=== PATIENT | female | born 1965 | race Caucasian/White ===

== ENCOUNTER 2017-05-31 20:10 | Inpatient (IN) | payer MEDICARE ==
[~2017-05-31] VITALS: Ht 154.9 cm; Wt 93.5 kg
[2017-05-31 20:06] VITALS: BP 184/96; PULSE 84; RESP 17; TEMP 96.6; O2SAT 94
[~2017-05-31 20:10] MED LIST: GABA300C3 PO; LISI-360 PO
[2017-05-31] MEDS ORDERED: HYDROmorphone HCL PF 1 MG/ML VIAL IV PRN (22:15)
[2017-05-31] MEDS: ONDANSETRON HCL 4 MG/2 ML VIAL IV PUSH PRN (22:16)
[2017-05-31] MEDS: HYDROmorphone HCL PF 1 MG/ML VIAL IV PRN (22:17)
[2017-05-31] MEDS ORDERED: NALOXONE HCL 0.4 MG/ML AMP IV PRN (22:30)
[2017-05-31] MEDS ORDERED: SODIUM CHLORIDE 0.9% FLUSH 10 ML FLUSH IV FLUSH PRN (22:30)
[2017-05-31] MEDS ORDERED: ZOLPIDEM TARTRATE 5 MG TAB PO PRN (22:30)
[2017-05-31] MEDS: SODIUM CHLOR 0.9% 1000 ML INJ 1,000 ML IV SCH (23:00)
[2017-06-01] VITALS (8 sets, daily range): BP systolic 140–190; BP diastolic 80–99; PULSE 74–98; RESP 16–20; TEMP 96–98.2; O2SAT 92–95
[2017-06-01] MEDS ORDERED: LACTATED RINGER'S 1000 ML IV PRN (00:45)
[2017-06-01] MEDS ORDERED: CHLORHEXIDINE GLUCONATE 2 % 1 PACK (2 CLOTHS) TOPICAL PRN (00:45)
[2017-06-01] MEDS ORDERED: INSULIN HUMAN REGULAR 1,000 UNITS/10 ML VIAL SQ PRN (00:45)
[2017-06-01] MEDS ORDERED: POVIDONE IODINE 5% (ANTISEPSIS KIT) 4 APPLICATIONS EACH NARE PRN (00:45)
[2017-06-01] MEDS ORDERED: SODIUM CHLORID 0.9% 500 ML IV PRN (00:45)
[2017-06-01] MEDS: ENALAPRILAT 1.25 MG/ML VIAL IV PUSH PRN (01:13)
[2017-06-01] MEDS: ONDANSETRON HCL 4 MG/2 ML VIAL IV PUSH PRN ×3 (02:26→20:01)
[2017-06-01] MEDS: HYDROmorphone HCL PF 1 MG/ML VIAL IV PRN ×5 (02:28→20:01)
[2017-06-01] MEDS: SODIUM CHLOR 0.9% 1000 ML INJ 1,000 ML IV SCH ×3 (08:20→20:01)
[2017-06-01] MEDS: SODIUM CHLORIDE 0.9% FLUSH 10 ML FLUSH IV FLUSH SCH ×2 (09:28→20:01)
--- NOTE | 2017-06-01 10:12 | HHI.HP ---
[facility] Service [facility] Primary Care Physician Donaldo Swain, DO Admission Diagnosis Diagnoses: Chief Complaint: Left leg pain (Laura Mcguire) Travel History International Travel<30 Days: No Contact w/Intl Traveler <30 Da: No Traveled to Known Affected Are: No (Laura Mcguire) History of Present Illness This a pleasant 51-year-old white female with significant past medical history of chronic pain, neuropathy, hypothyroidism, Guillain [place], ovarian cancer. Patient presented to [facility] on 05/30/2017 with complaint of left knee and leg pain that has been ongoing for 3 months. According to the patient, back in February she saw her primary care physician and had x-rays that didn't reveal any significant findings. She had a cortisone injection per Dr. Olmos. Over the next couple months,the pain has become so severe that her leg has started buckling and she has had a couple of falls. She finally went to [facility] yesterday where she had an MRI and a CT of the left leg. Imaging findings showed the possibility of osteomyelitis, there is a focal area of intramedullary density, gas to the proximal tibial diaphysis as well as a complete nondisplaced pathological fracture. There is also an abscess adjacent to the bone. Patient was transferred to this facility and a consultation has been put in place for Dr. Cowan who has evaluated patient and plans surgery tomorrow. Patient denies any recent fever, no chills. Indicates that sometimes the left knee gets very hot to the touch. Patient is admitted for further evaluation and treatment. (Laura Mcguire) Review of Systems Constitutional: DENIES: Diaphoretic episodes, Fatigue, Fever, Weight gain, Weight loss, Chills, Dizziness, Change in appetite, Night Sweats Endocrine: DENIES: Abnorml menstrual pattern, Heat/cold intolerance, Polydipsia , Polyuria, Polyphagia Eyes: DENIES: Blurred vision, Diplopia, Eye inflammation, Eye pain, Vision loss , Photosensitivity, Double Vision Ears, nose, mouth, throat: DENIES: Tinnitus, Hearing loss, Vertigo, Nasal discharge, Oral lesions, Throat pain, Hoarseness, Ear Pain, Running Nose, Epistaxis, Sinus Pain, Toothache, Odynophagia Respiratory: DENIES: Apneas, Cough, Snoring, Wheezing, Hemoptysis, Sputum production, Shortness of breath Cardiovascular: DENIES: Chest pain, Palpitations, Syncope, Dyspnea on Exertion , PND, Lower Extremity Edema, Orthopnea, Claudication Gastrointestinal: DENIES: Abdominal pain, Black stools, Bloody stools, Constipation, Diarrhea, Nausea, Vomiting, Difficulty Swallowing, Anorexia Genitourinary: DENIES: Abnormal vaginal bleeding, Dysmenorrhea, Dyspareunia, Sexual dysfunction, Urinary frequency, Urinary incontinence, Urgency, Hematuria , Dysuria, Nocturia, Vaginal discharge Musculoskeletal: COMPLAINS OF: Joint pain (left knee), Back pain, DENIES: Muscle aches, Stiffness, Joint Swelling, Neck pain Integumentary: DENIES: Abnormal pigmentation, Pruritus, Rash, Nail changes, Breast masses, Breast skin changes, Nipple discharge Hematologic/lymphatic: DENIES: Bruising, Lymphadenopathy Immunologic/allergic: DENIES: Eczema, Urticaria Neurologic: COMPLAINS OF: Abnormal gait, DENIES: Headache, Localized weakness, Paresthesias, Seizures, Speech Problems, Tremor, Poor Balance Psychiatric: COMPLAINS OF: Anxiety, Depression, DENIES: Confusion, Mood changes , Hallucinations, Agitation, Suicidal Ideation, Homicidal Ideation, Delusions Other Neuropathy (Laura Mcguire) Past Family Social History Past Medical History Hypothyroid Chronic pain syndrome Neuropathy Guillain barre, had PPE Ovarian cancer Diet controlled diabetes Depression Anxiety Right foot infection after surgery, also doubly osteomyelitis, she's not too sure Past Surgical History C-spine surgery 2 Right foot surgery 2 Ovarian cancer is status post LSO with hysterectomy Bilateral knee arthroscopy Reported Medications Reported Meds & Active Scripts Active Reported Lisinopril 10 mg (Lisinopril) 10 Mg Tab 2 Tab PO DAILY Gabapentin 300 Mg Cap 1,200 Mg PO TID (Laura Mcguire) Allergies: Coded Allergies: acetaminophen (Unverified Allergy, Severe, 05/23/17) NAUSEA VOMITING bupropion (Unverified Allergy, Severe, 05/23/17) ITCHING propoxyphene (Unverified Allergy, Severe, 05/23/17) NAUSEA VOMITING codeine (Unverified Adverse Reaction, Severe, NAUSEA, 05/23/17) ITCHING morphine (Unverified Adverse Reaction, Severe, AGITATION, 05/23/17) MIGRAINE Active Ordered Medications Inpatient Medications Chlorhexidine Gluconate (Chlorhexidine 2% Cloth) 3 pack [employer]ANCE [employer] PRN TOPICAL SEE LABEL COMMENTS; Start 06/01/17 at 00:45; Stop 06/04/17 at 00:44 Enalaprilat (Vasotec Inj) 1.25 mg Q6H PRN IV PUSH SBP > 170 MMHG Last administered on 06/01/17 01:13; Start 06/01/17 at 01:15 Hydromorphone HCl (Dilaudid Pf Inj) 1 mg Q4H PRN IV PAIN 6-10 Last administered on 06/01/17 06:42; Start 05/31/17 at 22:15 Insulin Human Regular (NovoLIN R INJ) See Protocol Table ... [employer] INS[employer]ANCE [employer]ENT PRN SQ SEE PROTOCOL TABLE; Start 06/01/17 at 00:45; Stop 06/04/17 at 00:44 Lactated Ringer's 1,000 ml @ 30 mls/hr Q24H PRN IV SEE LABEL COMMENTS; Start at 00:45; Stop 06/04/17 at 00:44 Naloxone HCl (Narcan Inj) 0.4 mg UNSCH PRN IV SEE LABEL COMMENTS; Start at 22:30 Ondansetron HCl (Zofran Inj) 4 mg Q4H PRN IV PUSH N/V Last administered on 06/01 06:41; Start 05/31/17 at 22:15 Povidone Iodine (Betadine 5% Antisepsis Kit) 1 applic [employer] INS[employer] PRN EACH NARE SEE LABEL COMMENTS; Start 06/01/17 at 00:45; Stop 06/04/17 at 00:44 Sodium Chloride 500 ml @ 30 mls/hr [id number] PRN IV SEE LABEL COMMENTS; Start at 00:45; Stop 06/04/17 at 00:44 Sodium Chloride (NS Flush) 2 ml BID IV FLUSH Last administered on 06/01/17 09: 28; Start 06/01/17 at 09:00 Zolpidem Tartrate (Ambien) 5 mg HS PRN PO INSOMNIA; Start 05/31/17 at 22:30 Family History Mother is alive and well, has history of borderline diabetes Father is alive and well, has history of diabetes Social History Patient lives with significant other, has 2 grown children. Smokes 1 pack a day , drinks 2 glasses of wine a day, occasional marijuana use. (Laura Mcguire) Physical Exam Vital Signs Vital Signs Date Time Temp Pulse Resp B/P (MAP) Pulse Ox O2 Delivery O2 Flow Rate FiO2 06/01/17 07:45 98.2 97 20 148/84 (105) 95 06/01/17 04:59 96.9 74 18 174/86 (115) 95 06/01/17 02:15 170/80 (110) 06/01/17 00:15 96.0 78 19 190/99 (129) 92 05/31/17 20:06 96.6 84 17 184/96 (125) 94 Physical Exam GENERAL: This is a well-nourished, well-developed patient, in no apparent distress. SKIN: No rashes, ecchymoses or lesions. Cool and dry. HEAD: Atraumatic. Normocephalic. No temporal or scalp tenderness. EYES: Pupils equal round and reactive. Extraocular motions intact. No scleral icterus. No injection or drainage. ENT: Nose without bleeding, purulent drainage or septal hematoma. Throat without erythema, tonsillar hypertrophy or exudate. Uvula midline. Airway patent. NECK: Trachea midline. No JVD or lymphadenopathy. Supple, nontender, no meningeal signs. CARDIOVASCULAR: Regular rate and rhythm without murmurs, gallops, or rubs. RESPIRATORY: Clear to auscultation. Breath sounds equal bilaterally. No wheezes , rales, or rhonchi. GASTROINTESTINAL: Abdomen soft, non-tender, nondistended. No hepato-splenomegaly , or palpable masses. No guarding. MUSCULOSKELETAL: Mild swelling noted to left knee, tender to palpation. No other joint abnormality. Bilateral pedal pulses 2+ bilaterally NEUROLOGICAL: Awake, alert oriented 3. No focal deficits. (Laura Mcguire) Caprini VTE Risk Assessment Caprini VTE Risk Assessment: Mod/High Risk (score >= 2) Caprini Risk Assessment Model Point Value = 1 Point Value = 2 Point Value = 3 Point Value = 5 Age 41-60 Minor surgery BMI > 25 kg/m2 Swollen legs Varicose veins or History of unexplained or recurrent spontaneous Oral contraceptives or hormone replacement Sepsis (< 1 month) Serious lung disease, including pneumonia (< 1 month) Abnormal pulmonary function Acute myocardial infarction Congestive heart failure (< 1 month) History of inflammatory bowel disease Medical patient at bed rest Age 61-74 Arthroscopic surgery Major open surgery (> 45 min) Laparoscopic surgery (> 45 min) Malignancy Confined to bed (> 72 hours) Immobilizing plaster cast Central venous access Age >= 75 History of VTE Family history of VTE Factor V Leiden Prothrombin [id number] Lupus anticoagulant Anticardiolipin antibodies Elevated serum homocysteine Heparin-induced thrombocytopenia Other congenital or acquired thrombophilia Stroke (< 1 month) Elective arthroplasty Hip, pelvis, or leg fracture Acute spinal cord injury (< 1 month) Prophylaxis Regimen Total Risk Factor Score Risk Level Prophylaxis Regimen 0-1 Low Early ambulation 2 Moderate Order ONE of the following: *Sequential Compression Device (SCD) *Heparin 5000 units SQ BID 3-4 Higher Order ONE of the following medications: *Heparin 5000 units SQ TID *Enoxaparin/Lovenox 40 mg SQ daily (WT < 150 kg, CrCl > 30 mL/min) *Enoxaparin/Lovenox 30 mg SQ daily (WT < 150 kg, CrCl > 10-29 mL/min) *Enoxaparin/Lovenox 30 mg SQ BID (WT < 150 kg, CrCl > 30 mL/min) AND/OR *Sequential Compression Device (SCD) 5 or more Highest Order ONE of the following medications: *Heparin 5000 units SQ TID (Preferred with Epidurals) *Enoxaparin/Lovenox 40 mg SQ daily (WT < 150 kg, CrCl > 30 mL/min) *Enoxaparin/Lovenox 30 mg SQ daily (WT < 150 kg, CrCl > 10-29 mL/min) *Enoxaparin/Lovenox 30 mg SQ BID (WT < 150 kg, CrCl > 30 mL/min) AND *Sequential Compression Device (SCD) (Laura Mcguire) Assessment and Plan Problem List: (1) Nondisplaced fracture of proximal left tibia ICD Codes: S82.102A - Unspecified fracture of upper end of left tibia, initial encounter for closed fracture Status: Acute (2) poss abscess left tibia with underlying osteomyelitis Status: Acute (3) Chronic pain ICD Codes: G89.29 - Other chronic pain Status: Chronic (4) Diet-controlled diabetes mellitus ICD Codes: E11.9 - Type 2 diabetes mellitus without complications Status: Chronic (5) Hypothyroid ICD Codes: E03.9 - Hypothyroidism, unspecified Status: Chronic (6) Anxiety and depression ICD Codes: F41.8 - Other specified anxiety disorders Status: Chronic (7) HTN (hypertension) ICD Codes: I10 - Essential (primary) hypertension Status: Chronic Assessment and Plan Admit to Dr. Mtz 51-year-old white female admitted with ongoing left pain, was found with with proximal tibial nondisplaced pathological fracture as well as possible osteomyelitis and abscess. -Orthopedic surgery has been consulted, patient has been evaluated and will be going for surgery tomorrow -Appropriate pain management has been ordered -At this time, no antibiotics will be initiated. There is no fever, no leukocytosis. Hypertension, patient was on Lisinopril but no longer takes. -Continue Vasotec as needed for elevated blood pressure Chronic pain -Medications have been resumed Diet controlled diabetes, stable -ADA diet Anxiety and depression -Home medications have been resumed Home medications reviewed, initiated as indicated SCDs for DVT prophylaxis Plan of care has been discussed with the patient, attending and registered nurse. Further management of the patient will be dependent on the hospital course This patient was seen by myself and Dr. Mtz, this H&P is written on his behalf (Laura Mcguire) Assessment and Plan pt is seen & examined d/w PT d/w Dr Guzman yesterday , Pt was transferred to [facility] per his recommendation to be evaluated & treated by Dr citlali Cowan's input awaited will f/u (Jerad Mtz MD) Physician Certification 2 Midnight Certification Type: Admission for Inpatient Services Order for Inpatient Services The services are ordered in accordance with Medicare regulations or non- Medicare payer requirements, as applicable. In the case of services not specified as inpatient-only, they are appropriately provided as inpatient services in accordance with the 2-midnight benchmark. Estimated LOS (days): 2 2 days is the estimated time the patient will need to remain in the hospital, assuming treatment plan goals are met and no additional complications. Post-Hospital Plan: Not yet determined (Laura Mcguire) Problem Qualifiers (1) Chronic pain: Qualified Codes: G89.4 - Chronic pain syndrome (2) Hypothyroid: Qualified Codes: E03.9 - Hypothyroidism, unspecified (3) HTN (hypertension): Qualified Codes: I10 - Essential (primary) hypertension Laura Mcguire Jun 01, 2017 10:12 Jerad Mtz MD Jun 01, 2017 12:11
[2017-06-01] MEDS ORDERED: DIVA250ER PO (10:29)
[2017-06-01] MEDS ORDERED: DEPA125T PO (10:29)
[2017-06-01] MEDS ORDERED: LYRI150C PO (10:30)
[2017-06-01] MEDS ORDERED: FLUO-1 PO (10:31)
[2017-06-01] MEDS ORDERED: ALLO100T PO (10:32)
[2017-06-01] MEDS ORDERED: TIZA2CAP3 PO (10:33)
[2017-06-01] MEDS ORDERED: AMIT75TA2 PO (10:36)
--- NOTE | 2017-06-01 13:32 | MB ---
cc: ESTELLA GLOVER DATE OF CONSULTATION: 06/01/2017 REASON FOR CONSULTATION Left proximal tibia fracture with possible osteomyelitis. HISTORY OF PRESENT ILLNESS Frida is a 51-year-old female who had a relatively recent history of Guillain-Belspring syndrome. Since that illness she has had multiple falls. She states that she has weakness of her legs and poor balance. She generally walks with a walker. She has been having pain for close to 3 months. She has bruises on her anterior knee from multiple falls. She initially was seen by Dr. Han Mcdaniels in the office. She had x-rays and MRI. She has had continued pain. She presented to [facility] where x-rays and MRI were done. The patient had increasing pain. She was unable to stand or ambulate. She has severe pain with weightbearing. Her pain is improved with rest. MRI was performed which was suspicious for possible osteomyelitis and possible infection. She is currently awake and alert in the orthopedic floor. Her only complaint is her left leg. Pain is worse with weightbearing. PAST MEDICAL HISTORY ALLERGIES WELLBUTRIN, MORPHINE, CODEINE AND DARVOCET. ILLNESSES 1. Hypertension. 2. Neuropathy. 3. Hypothyroidism. 4. History of Guillain-Belspring syndrome. 5. Borderline diabetes. PAST SURGICAL HISTORY 1. Cervical spine surgery. 2. Foot surgery. 3. Hysterectomy. 4. Bilateral knee arthroscopy. MEDICATIONS Please see EMR for complete list of inpatient medications, this was reviewed. SOCIAL HISTORY The patient is . She smokes a pack a day. She drinks approximately one drink a day. States that she is on disability. FAMILY HISTORY Noncontributory. REVIEW OF SYSTEMS The patient denies headache, visual changes, neck pain, chest pain, shortness of breath, abdominal pain, nausea, vomiting, recent weight loss or numbness or tingling of the extremities. She does have a history of poor balance and weakness secondary to Guillain-Belspring syndrome. She complains of left leg and knee pain. Pain is worse with movement. She denies any recent fevers or chills. She has had some mild swelling around the left knee. PHYSICAL EXAMINATION GENERAL: The patient is a pleasant 51-year-old female who is awake and alert. She is alert and oriented x3. She appears well-developed, well-nourished. She is moderately overweight. VITAL SIGNS: Temperature 98.2, pulse 77, respirations 20, blood pressure 148/84, O2 sat 95% on room air. HEAD: The patient is normocephalic. Pupils are equal. NECK: Soft, nontender. Trachea is midline. ABDOMEN: Soft, nontender, nondistended. EXTREMITIES: Examination of bilateral upper extremities reveals no pain with shoulder, elbow or wrist motion. She has intact sensation in all fingers. She has good cap refill in all fingers. Skin is intact to both hands. [employer] strength is +5 bilaterally. Examination of right leg reveals no pain with hip, knee or ankle motion. Skin is intact. Dorsalis pedis pulses palpable. Sensation intact to right foot. Examination of left leg reveals no pain around her hip or ankle. She has minimal pain with gentle knee motion. She has minimal swelling around the knee. There is no redness, warmth, erythema around her knee. She is exquisitely tender to palpation directly over the anterior tibial shaft just below the tibial tubercle. There is no fluctuance noted. Dorsalis pedis pulses palpable. Sensation is intact. Skin is intact in the left leg. IMAGING STUDIES MRI and CT scan were reviewed from [facility]. CT scan reveals a small amount of fracture callus along a proximal tibia shaft fracture. There is a nondisplaced fracture line through the proximal tibial metaphysis. Fracture appears to be incomplete. MRI of left knee was reviewed. The patient has edema of the proximal tibia. Appears to be nondisplaced fracture line. There does appear to be a small fluid collection along the posterior medial tibia. IMPRESSION 1. Nondisplaced fracture of the proximal left tibial metaphysis. 2. Small fluid collection along the posterior medial tibia. PLAN Treatment options were discussed with the patient. At this point the initial MRI reading was suspicious for osteomyelitis and possible small abscess along the tibia. The patient does not have any signs or symptoms of infection. She has had no recent illnesses or infections. She has had multiple falls. At this point I feel that she likely has a nondisplaced fracture of the proximal tibia without any concomitant infection. At this point I will obtain labs including C-reactive protein and sedimentation rate to help evaluate for possible infection. If the patient does have infection she will need surgical intervention. The patient will need irrigation and debridement of the tibia and abscess. If the patient does not have an infection she may likely be able to be treated nonoperatively. If her pain and symptoms do not improve with conservative treatment which would include use of a walker and/or a wheelchair with non-weightbearing on the left leg, then she may need surgical intervention for stabilization of her fracture. I will continue to follow her progress. All of her questions were answered. A mid-level provider in my office, nurse practitioner or PA, may see this patient on a follow-up basis and continue to implement the objective of this plan including: Starting or adjusting medications, injections of muscle, tendon, bursa or joints, cast application, orthotic or brace application, physical therapy, further radiographic studies including x-ray, MRI, CT, ultrasounds or bone scan, vascular studies, neurologic studies, or other specialist consultations, and proceeding with surgical management as appropriate. MD MAGO Tran/LOUIE /12:06 PM /12:59 PM
[2017-06-01] MEDS ORDERED: PILL SPLITTER OTHER PRN (16:30)
[2017-06-01] MEDS: ALLOPURINOL 100 MG TAB PO SCH (17:03)
[2017-06-01] MEDS: FLUoxetine HCL 10 MG CAP PO SCH (17:03)
[2017-06-01] MEDS: AMITRIPTYLINE HCL 75 MG TAB PO SCH (17:03)
[2017-06-01] MEDS: PREGABALIN 75 MG CAP PO SCH (17:32)
[2017-06-01] MEDS: DIVALPROEX SODIUM SPRINKLES 125 MG CAP PO SCH (17:33)
[2017-06-02] VITALS (7 sets, daily range): BP systolic 140–190; BP diastolic 76–98; PULSE 70–101; RESP 16–17; TEMP 97.1–98.8; O2SAT 94–98
[2017-06-02] MEDS: HYDROmorphone HCL PF 1 MG/ML VIAL IV PRN ×5 (00:27→21:42)
[2017-06-02] MEDS ORDERED: HYDR-3366 PO (06:56)
--- NOTE | 2017-06-02 07:04 | PD.ORT.PN ---
Subjective Subjective Remarks Frida is awake. Pain relatively well controlled. She does have significant pain with weightbearing. Minimal pain at rest. Objective Vitals Vital Signs Date Time Temp Pulse Resp B/P (MAP) Pulse Ox O2 Delivery O2 Flow Rate FiO2 06/02/17 04:00 98.8 70 16 159/79 (105) 96 06/02/17 00:10 97.1 92 17 140/76 (97) 94 06/01/17 20:05 98.2 88 16 152/86 (108) 94 06/01/17 15:48 97.6 98 18 150/92 (111) 93 Automatic Cuff 06/01/17 11:44 97.4 85 18 140/84 (102) 93 06/01/17 10:06 95 06/01/17 07:45 98.2 97 20 148/84 (105) 95 I/O 06/01/17 06/01/17 06/01/17 06/02/17 06/02/17 06/02/17 07:00 15:00 23:00 07:00 15:00 23:00 Intake Total 0 ml 1200 ml 600 ml 0 ml Balance 0 ml 1200 ml 600 ml 0 ml Intake Oral 0 ml 1200 ml 600 ml 0 ml # Voids 2 2 3 2 # Bowel Movements 0 0 Objective Remarks Patient is awake and alert. She appears comfortable. Examination of left leg reveals minimal swelling. No erythema or drainage. Tender to palpation along the proximal tibia. Assessment & Plan Assessment and Plan Patient has a nondisplaced left proximal tibia fracture. Lab work yesterday for sedimentation rate and C-reactive protein are essentially normal. Clinically she does not have any evidence of infection. Her pain is likely from the nondisplaced fracture of the proximal tibia from multiple falls. She needs to remain strictly nonweightbearing left leg with use of walker Okay for discharge home today if safe with physical therapy Follow-up with Ortho in approximately 2 weeks Rj He MD Jun 02, 2017 07:04
[2017-06-02] MEDS ORDERED: WALKER/ADULT/FO1 MIS (07:06)
[2017-06-02] MEDS: PREGABALIN 75 MG CAP PO SCH ×3 (08:54→17:13)
[2017-06-02] MEDS: DIVALPROEX SODIUM SPRINKLES 125 MG CAP PO SCH ×3 (08:54→17:13)
[2017-06-02] MEDS: FLUoxetine HCL 10 MG CAP PO SCH (08:54)
[2017-06-02] MEDS: ALLOPURINOL 100 MG TAB PO SCH (08:54)
[2017-06-02] MEDS: AMITRIPTYLINE HCL 75 MG TAB PO SCH (08:54)
[2017-06-02] MEDS: SODIUM CHLORIDE 0.9% FLUSH 10 ML FLUSH IV FLUSH SCH ×2 (08:54→19:52)
--- NOTE | 2017-06-02 10:09 | HHI.FF ---
Face to Face Verification Diagnosis: (1) Nondisplaced fracture of proximal left tibia Physical Therapy Order: Evaluate and Treat Home Health Nursing Order: Medical education Nursing assessment with vital signs I have seen patient Frida Harrison on 06/02/17. My clinical findings support the need for the requested home health care services because: Ltd mobility - disease progression Deconditioned w/ increased weakness Limited ability to care for self High risk of falls I certify that my clinical findings support that this patient is homebound because: Unsteady gait/balance Unsafe to leave home unassisted Laura Mcguire Jun 02, 2017 10:09
--- NOTE | 2017-06-02 10:10 | HHI.PR ---
Subjective Remarks left leg painful, pain better controlled no cp no sob will not be having surgery per ortho recommendations pt. wants to go to rehab Objective Objective Results - Vital Signs Date Time Temp Pulse Resp B/P (MAP) Pulse Ox O2 Delivery O2 Flow Rate FiO2 06/02/17 07:20 97.7 85 17 190/98 (128) 95 160/92 (114) 06/02/17 04:00 98.8 70 16 159/79 (105) 96 06/02/17 00:10 97.1 92 17 140/76 (97) 94 06/01/17 20:05 98.2 88 16 152/86 (108) 94 06/01/17 15:48 97.6 98 18 150/92 (111) 93 Automatic Cuff 06/01/17 11:44 97.4 85 18 140/84 (102) 93 I/O 06/01/17 06/01/17 06/01/17 06/02/17 06/02/17 06/02/17 07:00 15:00 23:00 07:00 15:00 23:00 Intake Total 0 ml 1200 ml 600 ml 0 ml Balance 0 ml 1200 ml 600 ml 0 ml Intake Oral 0 ml 1200 ml 600 ml 0 ml # Voids 2 2 3 2 # Bowel Movements 0 0 Other Results Laboratory Tests Test 06/01/17 12:20 06/01/17 12:38 C-Reactive Protein 2.00 Erythrocyte Sedimentation Rate 16 ROS General: No: Fatigue, Weakness HEENT: No: Sore Throat, Dysphagia Cardiac: No: Chest Pain, Edema, Palpitations Pulmonary: No: Cough, SOB, Wheezing GI: No: Abdominal Pain, BM, Diarrhea, N/V /GRAIN THRESHER: No: Dysuria, Urgency Neuro/MS: Other (left leg pain ) Psych: No: Anxiety, Depression Skin: No: Itching, Rash Physical Exam Physical Exam GENERAL: This is a well-nourished, well-developed patient, in no apparent distress. SKIN: No rashes, ecchymoses or lesions. Cool and dry. HEAD: Atraumatic. Normocephalic. No temporal or scalp tenderness. EYES: Pupils equal round and reactive. Extraocular motions intact. No scleral icterus. No injection or drainage. ENT: Nose without bleeding, purulent drainage or septal hematoma. Throat without erythema, tonsillar hypertrophy or exudate. Uvula midline. Airway patent. NECK: Trachea midline. No JVD or lymphadenopathy. Supple, nontender, no meningeal signs. CARDIOVASCULAR: Regular rate and rhythm without murmurs, gallops, or rubs. RESPIRATORY: Clear to auscultation. Breath sounds equal bilaterally. No wheezes , rales, or rhonchi. GASTROINTESTINAL: Abdomen soft, non-tender, nondistended. No hepato-splenomegaly , or palpable masses. No guarding. MUSCULOSKELETAL: Mild swelling noted to left knee, tender to palpation. No other joint abnormality. Bilateral pedal pulses 2+ bilaterally NEUROLOGICAL: Awake, alert oriented 3. No focal deficits. Urinary Catheter: No Vascular Central Line Catheter: No A/P Diagnosis: (1) Nondisplaced fracture of proximal left tibia ICD Codes: S82.102A - Unspecified fracture of upper end of left tibia, initial encounter for closed fracture Status: Acute (2) poss abscess left tibia with underlying osteomyelitis Status: Acute (3) Chronic pain ICD Codes: G89.29 - Other chronic pain Status: Chronic (4) Diet-controlled diabetes mellitus ICD Codes: E11.9 - Type 2 diabetes mellitus without complications Status: Chronic (5) Hypothyroid ICD Codes: E03.9 - Hypothyroidism, unspecified Status: Chronic (6) Anxiety and depression ICD Codes: F41.8 - Other specified anxiety disorders Status: Chronic (7) HTN (hypertension) ICD Codes: I10 - Essential (primary) hypertension Status: Chronic Assessment and Plan 51-year-old white female admitted with ongoing left pain, was found with with proximal tibial nondisplaced pathological fracture as well as possible osteomyelitis and abscess. -appreciate ortho input, no surgery recommended at this time. .No clinical sx of infection. Fracture likely due to mult. falls. Recommends strictly nonweightbearing left leg with use of walker, PT. -sed rate okay, no evidence of infection -ortho has cleared for dc Hypertension, patient was on Lisinopril but no longer takes. -Continue Vasotec as needed for elevated blood pressure -BP remains elevated, will add Lisinopril 2.5 mg po daily. Chronic pain -continue home meds Diet controlled diabetes, stable -ADA diet Anxiety and depression -continue home meds SCDs for DVT prophylaxis CM consult for DC planning, SNF placement Poss dc today or tomorrow if arrangements can be made D/W RN D/W Dr. Mtz D/W pt This patient was seen by myself and Dr. Mtz, this note is written on his behalf Problem Qualifiers (1) Chronic pain: Qualified Codes: G89.4 - Chronic pain syndrome (2) Hypothyroid: Qualified Codes: E03.9 - Hypothyroidism, unspecified (3) HTN (hypertension): Qualified Codes: I10 - Essential (primary) hypertension Laura Mcguire Jun 02, 2017 10:10
[2017-06-02] MEDS ORDERED: LYRI150C PO (10:20)
--- NOTE | 2017-06-02 10:20 | HHI.DCPOC ---
Discharge Care Plan Diagnosis: (1) Nondisplaced fracture of proximal left tibia Your Health Problems Are: Difficulty with ADL Goals to Promote Your Health * To prevent worsening of your condition and complications * To maintain your health at the optimal level Directions to Meet Your Goals Take your medications as prescribed Follow your dietary instruction Follow activity as directed Keep your appointments as scheduled Take your immunizations and boosters as scheduled If your symptoms worsen call your PCP, if no PCP go to Urgent Care Center or Emergency Room Smoking is Dangerous to Your Health. Avoid second hand smoke Call the 24-hour hour crisis hotline for domestic abuse at Laura Mcguire. [facility] Jun 02, 2017 10:20
[2017-06-02] MEDS ORDERED: LISI-519 PO (10:21)
[2017-06-02] MEDS ORDERED: LYRI75CA PO (10:23)
[2017-06-02] MEDS: LISINOPRIL 5 MG TAB PO SCH (11:03)
[2017-06-02] MEDS: SODIUM CHLOR 0.9% 1000 ML INJ 1,000 ML IV SCH (14:20)
[2017-06-02] MEDS: ENALAPRILAT 1.25 MG/ML VIAL IV PUSH PRN (19:51)
[2017-06-03] MEDS: SODIUM CHLOR 0.9% 1000 ML INJ 1,000 ML IV SCH ×2 (00:06→10:20)
[2017-06-03 00:11] VITALS: BP 142/84; PULSE 87; RESP 16; TEMP 97.3; O2SAT 93
[2017-06-03] MEDS: HYDROmorphone HCL PF 1 MG/ML VIAL IV PRN (03:45)
[2017-06-03 04:00] VITALS: BP 152/92; PULSE 86; RESP 20; TEMP 97.1; O2SAT 96
[2017-06-03 07:14] LABS: POTASSIUM 4.8 MEQ/L (3.5-5.1)
[2017-06-03] MEDS: SODIUM CHLORIDE 0.9% FLUSH 10 ML FLUSH IV FLUSH SCH (09:00)
[2017-06-03 09:23] VITALS: BP 179/90; PULSE 92; RESP 18; TEMP 95.6; O2SAT 94
[2017-06-03] MEDS: ALLOPURINOL 100 MG TAB PO SCH (09:25)
[2017-06-03] MEDS: FLUoxetine HCL 10 MG CAP PO SCH (09:25)
[2017-06-03] MEDS: AMITRIPTYLINE HCL 75 MG TAB PO SCH (09:25)
[2017-06-03] MEDS: PREGABALIN 75 MG CAP PO SCH ×2 (09:25→15:12)
[2017-06-03] MEDS: DIVALPROEX SODIUM SPRINKLES 125 MG CAP PO SCH ×2 (09:26→15:12)
[2017-06-03] MEDS: LISINOPRIL 5 MG TAB PO SCH (09:26)
[2017-06-03] MEDS ORDERED: ACETAMINOPHEN/HYDROcodone 325 MG/7.5 MG TAB PO ONE (10:15)
--- NOTE | 2017-06-03 11:53 | HHI.PR ---
Subjective History of Present Illness I am ok leg pain is ok /pain meds are helping hurts to stand no N/v no fever or chills no cp or sob offers no other c/o Vitals/Results Vital Signs Vital Signs Date Time Temp Pulse Resp B/P (MAP) Pulse Ox O2 Delivery O2 Flow Rate FiO2 06/03/17 09:23 95.6 92 18 179/90 (119) 94 06/03/17 04:00 97.1 86 20 152/92 (112) 96 06/03/17 00:11 97.3 87 16 142/84 (103) 93 06/02/17 21:15 98 152/88 (109) 06/02/17 19:15 98.2 101 17 182/86 (118) 98 06/02/17 16:30 97.4 92 17 165/95 (118) 95 CBC/BMP: 06/03/17 0542 Lab Results Laboratory Tests Test 06/03/17 05:42 Blood Urea Nitrogen 11 MG/DL Creatinine 0.82 MG/DL Random Glucose 93 MG/DL Calcium Level 9.2 MG/DL Sodium Level 138 MEQ/L Potassium Level 4.8 MEQ/L Chloride Level 98 MEQ/L Carbon Dioxide Level 33.0 MEQ/L Anion Gap 7 MEQ/L Estimat Glomerular Filtration Rate 74 ML/MIN Physical Exam General General Appearance: No Acute Distress, Comfortable, Obese Eyes Eye Exam: Pupils Equal, Sclera White Ears & Nose Ears & Nose Exam: Nasal Mucosa [place] Throat Throat Exam: Oral Mucosa [place] & Moist Neck Neck Exam: Neck Supple, Trachea Midline Pulmonary Resp Exam: Clear Bilaterally, Breath Sounds Equal Cardiology CV Exam: Regular, Normal Sinus Rhythm Gastrointestinal/Abdomen GI Exam: Soft, Non-Tender Musculoskeletal MS Remarks +ve tenderness over prox left leg just below knee joint, mild swelling Neurologic Neuro Exam: Alert, Awake, Oriented, Speech Clear, Moving All Extremities Psychiatric Psych Exam: Appropriate Responses Assessment/Plan Assessment/Plan A/P Diagnosis: (1) Nondisplaced fracture of proximal left tibia ICD Codes: S82.102A - Unspecified fracture of upper end of left tibia, initial encounter for closed fracture Status: Acute (2) poss abscess left tibia with underlying osteomyelitis Status: Acute (3) Chronic pain ICD Codes: G89.29 - Other chronic pain Status: Chronic (4) Diet-controlled diabetes mellitus ICD Codes: E11.9 - Type 2 diabetes mellitus without complications Status: Chronic (5) Hypothyroid ICD Codes: E03.9 - Hypothyroidism, unspecified Status: Chronic (6) Anxiety and depression ICD Codes: F41.8 - Other specified anxiety disorders Status: Chronic (7) HTN (hypertension) ICD Codes: I10 - Essential (primary) hypertension Status: Chronic Assessment and Plan 51-year-old white female admitted with ongoing left pain, was found with with proximal tibial nondisplaced pathological fracture as well as possible osteomyelitis and abscess. -appreciate ortho input, no surgery recommended at this time. .No clinical sx of infection. Fracture likely due to mult. falls. Recommends strictly nonweightbearing left leg with use of walker, PT. -sed rate okay, no evidence of infection -ortho has cleared for dc Hypertension, patient was on Lisinopril but no longer takes. -Continue Vasotec as needed for elevated blood pressure -BP remains elevated, will add Lisinopril 2.5 mg po daily. Chronic pain -continue home meds Diet controlled diabetes, stable -ADA diet Anxiety and depression -continue home meds SCDs for DVT prophylaxis CM consult for DC planning, SNF placement Poss dc today or tomorrow if arrangements can be made D/W Jerad Mane MD Jun 03, 2017 11:53
[2017-06-03 11:56] VITALS: BP 119/74; PULSE 118; RESP 18; TEMP 98.2; O2SAT 96
--- NOTE | 2017-06-04 00:40 | HHI.DS ---
Discharge Summary Admission Date May 31, 2017 at 20:10 Discharge Date: Jun 03, 2017 Admitting Diagnosis (1) Nondisplaced fracture of proximal left tibia ICD Codes: S82.102A - Unspecified fracture of upper end of left tibia, initial encounter for closed fracture Status: Acute (2) poss abscess left tibia with underlying osteomyelitis Status: Acute (3) Chronic pain ICD Codes: G89.29 - Other chronic pain Status: Chronic (4) Diet-controlled diabetes mellitus ICD Codes: E11.9 - Type 2 diabetes mellitus without complications Status: Chronic (5) Hypothyroid ICD Codes: E03.9 - Hypothyroidism, unspecified Status: Chronic (6) Anxiety and depression ICD Codes: F41.8 - Other specified anxiety disorders Status: Chronic (7) HTN (hypertension) ICD Codes: I10 - Essential (primary) hypertension Status: Chronic CBC/BMP: 06/03/17 0542 Significant Findings Laboratory Tests Test 06/01/17 12:20 06/01/17 12:38 06/03/17 05:42 C-Reactive Protein 2.00 MG/DL (0.00-0.30) Carbon Dioxide Level 33.0 MEQ/L (21.0-32.0) Estimat Glomerular Filtration Rate 74 ML/MIN (>89) Hospital Course This a pleasant 51-year-old white female with significant past medical history of chronic pain, neuropathy, hypothyroidism, Guillain [place], ovarian cancer. Patient presented to [facility] on 05/30/2017 with complaint of left knee and leg pain that has been ongoing for 3 months. According to the patient, back in February she saw her primary care physician and had x-rays that didn't reveal any significant findings. She had a cortisone injection per Dr. Olmos. Over the next couple months,the pain has become so severe that her leg has started buckling and she has had a couple of falls. She finally went to [facility] yesterday where she had an MRI and a CT of the left leg. Imaging findings showed the possibility of osteomyelitis, there is a focal area of intramedullary density, gas to the proximal tibial diaphysis as well as a complete nondisplaced pathological fracture. There is also an abscess adjacent to the bone. Patient was transferred to this facility and a consultation has been put in place for Dr. Cowan who has evaluated patient and plans surgery tomorrow. Patient denied any recent fever, no chills. Indicated that sometimes the left knee gets very hot to the touch. Patient was admitted for further evaluation and treatment. Diagnosis: (1) Nondisplaced fracture of proximal left tibia (2) poss abscess left tibia with underlying osteomyelitis (3) Chronic pain (4) Diet-controlled diabetes mellitus (5) Hypothyroid (6) Anxiety and depression (7) HTN (hypertension) Hospital Course: 51-year-old white female admitted with ongoing left pain, was found with with proximal tibial nondisplaced pathological fracture as well as possible osteomyelitis and abscess. -appreciated ortho input, no surgery recommended at this time. .No clinical sx of infection. Fracture likely due to mult. falls. Recommended strictly nonweightbearing left leg with use of walker, PT. -sed rate okay, no evidence of infection -ortho cleared for dc Hypertension, patient was on Lisinopril but no longer was taking -put Vasotec as needed for elevated blood pressure -BP remained elevated, started on Lisinopril 2.5 mg po daily. BP improved Chronic pain -continued home meds Diet controlled diabetes, stable -ADA diet Anxiety and depression -continued home meds SCDs for DVT prophylaxis CM consult for DC planning, SNF placement Pt. stable for dc Discharged to SNF in stable condition. Pt Condition on Discharge: Stable Discharge Disposition: Discharge to SNF Discharge Instructions DIET: Follow Instructions for: Heart Healthy Diet Fluid Restrictions: none Activities you can perform: Non Weight Bearing Follow up Referrals: Orthopedics - 2 Weeks @ [facility] with Han Mcdaniels MD New Medications: Hydrocodone-Acetaminophen (Kunia) 10-325 Mg Tab 1 TAB PO Q4H PRN for PAIN, #60 TAB 0 Refills Walker/Adult/Folding (Walker/Adult/Folding) 1 Mis Mis EA .ROUTE DIRECTED, #1 0 Refills Lisinopril (Lisinopril) 5 Mg Tab 2.5 MG PO DAILY for Blood Pressure Management for 30 Days, #30 TAB Pregabalin (Lyrica) 75 Mg Cap 150 MG PO TID for Pain Management for 7 Days, #21 CAP Continued Medications: Allopurinol (Allopurinol) 100 Mg Tab 100 MG PO DAILY for Gout, #30 TAB 0 Refills Amitriptyline (Amitriptyline) 75 Mg Tab 75 MG PO DAILY, TAB Divalproex (Rj BERNSTEIN) 125 Mg Tabdr 125 MG PO TID for Control Seizures, #60 TAB 0 Refills Fluoxetine (Prozac) 10 Mg Cap 10 MG PO DAILY, #30 CAP 0 Refills Gabapentin (Gabapentin) 300 Mg Cap 1200 MG PO TID, CAP Tizanidine (Tizanidine) 2 Mg Cap 2 MG PO DAILY for Muscle Spasm, CAP 0 Refills Discontinued Medications: Lisinopril 10 mg (Lisinopril 10 mg) 10 Mg Tab 2 TAB PO DAILY, TAB Laura Mcguire Jun 04, 2017 00:40
== END 2017-06-03 16:53 | DRG 563 ==
LOC: N06A 20:10
PROVIDERS: ADMIT Specialist; ATTEND Specialist
DX: S82.102A Unspecified fracture of upper end of left tibia, initial encounter for closed fracture (principal); G61.0 Guillain-Barre syndrome; I10 Essential (primary) hypertension; E03.9 Hypothyroidism, unspecified; E11.9 Type 2 diabetes mellitus without complications; G89.4 Chronic pain syndrome; F41.8 Other specified anxiety disorders; R29.6 Repeated falls; F17.210 Nicotine dependence, cigarettes, uncomplicated; W19.XXXA Unspecified fall, initial encounter; Y93.9 Activity, unspecified; Z85.43 Personal history of malignant neoplasm of ovary; F12.90 Cannabis use, unspecified, uncomplicated; G62.9 Polyneuropathy, unspecified
CPT/HCPCS: 76937; 80048; 85652; 86140; J1170; J2405; J7030

== ENCOUNTER 2017-10-13 05:56 | Inpatient (IN) | payer MEDICARE, MEDICAID ==
[~2017-10-13] VITALS: Ht 154.9 cm; Wt 99.8 kg
[~2017-10-13 05:56] MED LIST changes: +ALLO100T PO; +AMIT75TA2 PO; +DEPA125T PO; +FLUO-1 PO; -GABA300C3 PO; +HYDR-3366 PO; -LISI-360 PO; +LYRI75CA PO; +TIZA2CAP3 PO; +WALKER/ADULT/FO1 MIS
[2017-10-13] MEDS ORDERED: VANCOMYCIN 1000 MG/NS 250 ML (for <70 kg) IV SCH ×2 (06:30)
[2017-10-13] MEDS ORDERED: ceFAZolin 2 GM PREMIX 50 ML IV SCH (06:30)
[2017-10-13] MEDS ORDERED: METOPROLOL TARTRATE 25 MG TAB PO PRN (06:30)
[2017-10-13] MEDS ORDERED: CHLORHEXIDINE GLUCONATE 4% SOLN 120 ML BTL TOPICAL SCH (06:30)
[2017-10-13] MEDS ORDERED: LACTATED RINGER'S 1000 ML IV PRN (06:30)
[2017-10-13] MEDS ORDERED: SODIUM CHLORID 0.9% 500 ML IV PRN (06:30)
[2017-10-13] MEDS ORDERED: POVIDONE IODINE 5% (ANTISEPSIS KIT) 4 APPLICATIONS EACH NARE PRN (06:30)
[2017-10-13] MEDS ORDERED: CHLORHEXIDINE GLUCONATE 2 % 1 PACK (2 CLOTHS) TOPICAL PRN (06:30)
[2017-10-13] MEDS ORDERED: GENTAMICIN SULFATE 80 MG/2 ML VIAL ONE (07:32)
[2017-10-13] MEDS ORDERED: BUPIVACAINE/EPINEPHRINE 0.25% PF 30 ML VIAL ONE (08:20)
[2017-10-13] MEDS ORDERED: APREPITANT 40 MG CAP ONE (08:51)
[2017-10-13] MEDS ORDERED: ACETAMINOPHEN 1000 MG/100 ML 100 ML IV ONE (09:11)
[2017-10-13] MEDS ORDERED: SUGAMMADEX SODIUM 200 MG/2 ML VIAL IV PUSH ONE (09:12)
[2017-10-13] MEDS ORDERED: XARE10TA PO (09:40)
[2017-10-13] MEDS ORDERED: CALCTAB19 PO (09:40)
[2017-10-13] MEDS ORDERED: VITA2000 PO (09:40)
[2017-10-13] MEDS ORDERED: HYDR-3366 PO (09:40)
[2017-10-13] MEDS ORDERED: VITA500012 PO (09:40)
--- NOTE | 2017-10-13 11:16 | PD.OP ---
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 Surgeon: Rj Cowan Supervisor Sunglasses(s): WINSOME Amaya PA-C The surgical procedure was assisted by my physician nurseryman assistant. My P.A. presence was necessary throughout this case for the manipulation and positioning of the surgical extremity. My P.A. was assisting me throughout the duration of this procedure. The skill set of a physician nurseryman assistant was medically necessary to complete this procedure. During the surgical case the neurosurgical nurse practitioner was working at the back table and the physician nurseryman assistant was directly assisting me. Operation and Findings: Implants: synthes 10 mm x [300]mm tibial nail Plan of activity: Nonweightbearing Patient was seen and examined preoperatively. An informed consent was obtained from patient after detailed discussion of risk and benefits. Risks of surgery include bleeding, infection, painful hardware, nonunion, malunion, leg length discrepancy, need for hardware removal, and medical complications associated with anesthesia including blood clots, stroke, heart attack, and were discussed. Operative site was marked. Patient was brought to the operating room placed on or table. Patient received IV antibiotics and was given IV sedation GETA. Left leg and hip were prepped with alcohol Hibiclens and draped in usual sterile fashion. Timeout procedure was performed Procedure began with debridement of the nonunion. A 3 inch incision was made over the anterolateral aspect of the fracture. Subcutaneous tissue and fascia were incised with Bovie. Nonunion site was visualized. There was clear motion throughout the fracture site. The fracture site and nonunion were thoroughly debrided at this point. Curettes and rongeurs were used to debride the nonunion site. Tissue was obtained for cultures. TPS bur was also used to debride bone back to healthy bleeding bone. Next attention was turned towards reduction of fracture. Traction was applied. Fracture was reduced. There was comminution of the fracture. The fracture reduced and excellent alignment was achieved. Fracture clamp was used to aid in reduction. Next a 3 cm incision was made proximal to the patella. Quadriceps tendon was split in line with fibers. Cannulas were placed in the patellofemoral joint to protect the articular surface at all times. A guidepin was placed into the tibia and advanced in the tibial canal. Fluoroscopy was used to confirm appropriate guidepin placement. An opening reamer was used to open the tibial canal. A ball-tipped guidewire was advanced down the tibial canal. Guidepin was passed across the fracture site into the center of the distal tibia. Fluoroscopy confirmed guidepin placement. The nail length was now measured. The fracture was now held in a reduced position and the canal was reamed. The canal was reamed up to appropriate size. A Synthes size 10 mm nail was now selected. Next the nail was passed over the guidepin. Patient had a split down the posterior cortex of the tibia. The nail was now gently contoured to allow for easier passage into the canal. The nail was now fully seated over the guidepin. Using perfect buckland technique 2 distal interlocking screws were placed. Using the insertion handle as a guide 4 proximal interlocking screws were placed. Fluoroscopy confirmed excellent of fracture with well-placed hardware. Incisions and the knee joint were thoroughly irrigated with sterile saline. Attention was now turned towards bone grafting. A 3 cm incision was made over the iliac crest. Subcutaneous tissue dissected with Bovie. Fascia was elevated. Osteotomes were used to create a window in the cortex. Curettes were used to obtain bone graft. Cells bone graft was obtained from the iliac crest. An additional 5 cc of Synthes Vivagen bone graft was also utilized. The 2 types of bone graft were mixed together. The defect of the tibia was completely filled with bone graft. Fascia was closed with #1 Vicryl, subcutaneous tissues closed with 3-0 Vicryl and skin was closed with marcial. Sterile dressings were applied. Patient was awakened and transferred to recovery in stable condition. Rj Cowan MD Oct 13, 2017 11:16
[2017-10-13] MEDS ORDERED: ONDANSETRON HCL 4 MG/2 ML VIAL IVP PRN (11:30)
--- NOTE | 2017-10-13 11:30 | RADRPT ---
EXAM DATE/TIME: 10/13/2017 10:47 [place] COMPARISON: No previous studies available for comparison. INDICATIONS : IM carlin left tib fib. MEDICAL HISTORY : Fractured tibia SURGICAL HISTORY : None. ENCOUNTER: Initial ACUITY: 1 day PAIN SCORE: Non-responsive. LOCATION: Left Tib fib. FINDINGS: There are postsurgical changes with operative reduction and internal fixation of the previously seen fracture. The alignment is anatomic. CONCLUSION: Postsurgical changes as above. Kvng Ferreira MD on October 13, 2017 at 11:28 Board Certified Radiologist. This report was verified electronically.
[2017-10-13] MEDS ORDERED: HYDROmorphone HCL PF 2 MG/ML VIAL ONE (11:36)
[2017-10-13] MEDS ORDERED: diphenhydrAMINE HCL 25 MG CAP PO PRN (11:45)
[2017-10-13] MEDS ORDERED: KETAMINE HCL 500 MG/5 ML VIAL ONE (11:47)
[2017-10-13] MEDS ORDERED: DO NOT ADM ANY ANTICOAGULANT DRUGS PRN (11:50)
[2017-10-13] MEDS ORDERED: *LABETALOL HCL 100 MG/20 ML VIAL PERIprocedural Use ONLY ONE ×2 (11:55→12:20)
[2017-10-13] MEDS ORDERED: MIDAZOLAM HCL 2 MG/2 ML VIAL ONE (11:55)
[2017-10-13] MEDS ORDERED: PILL SPLITTER OTHER PRN (12:00)
[2017-10-13] MEDS ORDERED: LIDOCAINE HCL 1% PF 5 ML SYRINGE OTHER ONE (12:00)
[2017-10-13] MEDS ORDERED: ROCURONIUM INJ 50 MG/5 ML VIAL IV ONE (12:00)
[2017-10-13] MEDS ORDERED: ERGOCALCIFEROL (VIT D2) 50,000 UNIT CAP PO SCH (12:00)
[2017-10-13] MEDS ORDERED: PROPOFOL 200 MG/20 ML AMP IV ONE (12:00)
[2017-10-13] MEDS ORDERED: DEXAMETHASONE SOD PHOS 4 MG/ML VIAL IV ONE (12:00)
[2017-10-13] MEDS ORDERED: ONDANSETRON HCL 4 MG/2 ML VIAL IV PUSH ONE (12:00)
[2017-10-13] MEDS ORDERED: *HYDROmorphone PF 1 MG VIAL PERIprocedural Use ONLY ONE ×2 (12:18→13:51)
[2017-10-13] MEDS ORDERED: LABETALOL HCL 100 MG/20 ML VIAL IV ONE (12:30)
[2017-10-13] MEDS ORDERED: hydrALAZINE HCL 20 MG/ML VIAL ONE (12:34)
[2017-10-13] MEDS ORDERED: hydrALAZINE HCL 20 MG/ML VIAL IV ONE (12:37)
[2017-10-13] MEDS: LACTATED RINGER'S 1000 ML INJ 1,000 ML IV SCH ×2 (12:40→21:11)
[2017-10-13] MEDS: PREGABALIN 75 MG CAP PO SCH ×2 (13:00→18:27)
[2017-10-13] MEDS: CALCIUM/VITAMIN D 250 MG/125 U TAB PO SCH ×2 (13:00→18:22)
[2017-10-13] MEDS: DIVALPROEX SODIUM SPRINKLES 125 MG CAP PO SCH ×2 (13:00→18:23)
[2017-10-13] MEDS ORDERED: *ENALAPRILAT 1.25 MG/ML VIAL PERIprocedural Use ONLY ONE (13:01)
[2017-10-13 16:00] VITALS: BP 157/89; PULSE 97; RESP 17; TEMP 96.8; O2SAT 95
[2017-10-13] MEDS: ceFAZolin 2 GM PREMIX 50 ML IV SCH ×2 (18:25→23:28)
[2017-10-13 20:30] VITALS: BP 147/81; PULSE 115; RESP 16; TEMP 96.2; O2SAT 95
[2017-10-13] MEDS: VANCOMYCIN INJ 1,000 MG in SODIUM CHLOR 0.9% 250 ML INJ 250 ML IV SCH (21:09)
[2017-10-13] MEDS: HYDROmorphone HCL PF 2 MG/ML VIAL IV PUSH PRN (21:10)
--- NOTE | 2017-10-13 21:37 | EKG ---
Date Performed: 10/13/2017 Time Performed: 07:08:26 PTAGE: 51 years EKG: Sinus rhythm NORMAL ECG PREVIOUS TRACING : 10/30/2009 03.52 Compared to prior tracing no significant change DOCTOR: Mahin Mcfadden Interpretating Date/Time 10/13/2017 21:36:53
[2017-10-14] VITALS (8 sets, daily range): BP systolic 105–165; BP diastolic 56–87; PULSE 74–112; RESP 15–18; TEMP 96.4–98.2; O2SAT 93–99
[2017-10-14] MEDS: HYDROmorphone HCL PF 2 MG/ML VIAL IV PUSH PRN ×3 (01:12→20:13)
--- NOTE | 2017-10-14 06:46 | PD.ORT.PN ---
Subjective Subjective Remarks POD 1 s/p IMN with ICBG left tibia reports significant pain left leg. Objective Vitals Vital Signs Date Time Temp Pulse Resp B/P (MAP) Pulse Ox O2 Delivery O2 Flow Rate FiO2 10/14/17 01:00 98.2 90 16 105/63 (77) 95 10/13/17 20:30 96.2 115 16 147/81 (103) 95 10/13/17 16:00 96.8 97 17 157/89 (111) 95 10/13/17 14:00 97.5 100 20 177/87 (117) 94 Nasal Cannula 3 10/13/17 13:45 104 20 170/82 (111) 94 Nasal Cannula 3 10/13/17 13:35 87 13 153/80 (104) 94 10/13/17 13:30 90 13 204/94 (130) 94 Nasal Cannula 3 10/13/17 13:15 81 13 179/87 (117) 96 Nasal Cannula 3 10/13/17 13:00 85 13 182/93 (122) 93 Nasal Cannula 3 10/13/17 12:45 86 18 176/91 (119) 95 Nasal Cannula 3 10/13/17 12:41 82 12 190/86 (120) 96 Nasal Cannula 3 10/13/17 12:34 79 13 187/88 (121) 96 Nasal Cannula 3 10/13/17 12:30 81 13 184/84 (117) 94 Nasal Cannula 3 10/13/17 12:24 84 13 182/83 (116) 94 Nasal Cannula 3 10/13/17 12:15 93 24 218/102 (140) 96 Nasal Cannula 3 10/13/17 12:00 102 16 179/91 (120) 99 Nasal Cannula 3 10/13/17 11:45 126 14 139/61 (87) 92 Nasal Cannula 5 10/13/17 11:44 97.6 124 25 175/73 (107) 93 Nasal Cannula 5 I/O 10/13/17 10/13/17 10/13/17 10/14/17 10/14/17 10/14/17 07:00 15:00 23:00 07:00 15:00 23:00 Intake Total 1537 ml 290 ml Output Total 150 ml Balance 1387 ml 290 ml Intake Oral 30 ml 240 ml IV Total 1507 ml 50 ml Output Estimated Blood Loss 150 ml # Voids 0 2 # Bowel Movements 0 Objective Remarks LLE: bloody drainage soaked through on knee and lateral tibia. nvi distally with good dorsiflexion. Assessment & Plan Assessment and Plan 1) Left Tibia Fx s/p IMN with ICBG - POD 1 -TTWB -ice -daily dressing changes -change dressing starting today -CM for rehab options. patient lives in and will not be safe to go home -will change patients pain meds to norco. reports allergy to Acetaminophen but has been on [place] for 4 months on outpatient basis with no issues. -f/u with Neri or PA in 2 weeks Patrick Brannon/Clerical Associate PA Oct 14, 2017 06:46
[2017-10-14] MEDS: CHOLECALCIFEROL (VIT D3) 1000 UNIT TAB PO SCH (08:26)
[2017-10-14] MEDS: AMITRIPTYLINE HCL 75 MG TAB PO SCH (08:26)
[2017-10-14] MEDS: PREGABALIN 75 MG CAP PO SCH ×3 (08:27→18:31)
[2017-10-14] MEDS: FLUoxetine HCL 10 MG CAP PO SCH (08:27)
[2017-10-14] MEDS: DIVALPROEX SODIUM SPRINKLES 125 MG CAP PO SCH ×3 (08:27→18:31)
[2017-10-14] MEDS: ALLOPURINOL 100 MG TAB PO SCH (08:28)
[2017-10-14] MEDS: ACETAMINOPHEN/HYDROcodone 325 MG/10 MG TAB PO PRN ×3 (08:28→18:32)
[2017-10-14] MEDS: CALCIUM/VITAMIN D 250 MG/125 U TAB PO SCH ×3 (08:28→18:31)
[2017-10-14] MEDS: ASCORBIC ACID 500 MG TAB PO SCH (08:29)
[2017-10-14] MEDS: ceFAZolin 2 GM PREMIX 50 ML IV SCH ×2 (08:32→18:31)
[2017-10-14] MEDS: VANCOMYCIN INJ 1,000 MG in SODIUM CHLOR 0.9% 250 ML INJ 250 ML IV SCH (08:33)
[2017-10-14] MEDS: LACTATED RINGER'S 1000 ML INJ 1,000 ML IV SCH ×2 (10:24→17:30)
[2017-10-14] MEDS: ENOXAPARIN SODIUM 40 MG/0.4 ML SYRINGE SQ SCH (12:07)
[2017-10-15 00:03] VITALS: BP 99/52; PULSE 72; RESP 18; TEMP 96.9; O2SAT 95
[2017-10-15] MEDS: ceFAZolin 2 GM PREMIX 50 ML IV SCH ×2 (01:55→08:09)
[2017-10-15] MEDS: ACETAMINOPHEN/HYDROcodone 325 MG/10 MG TAB PO PRN ×5 (02:53→21:07)
[2017-10-15 04:03] VITALS: BP 137/72; PULSE 92; RESP 18; TEMP 96.7; O2SAT 95
--- NOTE | 2017-10-15 06:54 | PD.ORT.PN ---
Subjective Subjective Remarks Continues to have some pain control issues. No new complaints Objective Vitals Vital Signs Date Time Temp Pulse Resp B/P (MAP) Pulse Ox O2 Delivery O2 Flow Rate FiO2 10/15/17 04:03 96.7 92 18 137/72 (93) 95 10/15/17 00:03 96.9 72 18 99/52 (68) 95 10/14/17 20:05 96.4 74 17 109/56 (73) 95 10/14/17 19:45 93 21 10/14/17 16:00 97.2 88 15 121/72 (88) 93 10/14/17 14:07 16 10/14/17 14:07 16 10/14/17 12:00 96.8 112 18 126/66 (86) 96 10/14/17 10:53 16 10/14/17 10:30 99 21 10/14/17 07:40 97.7 95 18 165/87 (113) 96 I/O 10/14/17 10/14/17 10/14/17 10/15/17 10/15/17 10/15/17 07:00 15:00 23:00 07:00 15:00 23:00 Intake Total 1140 ml 360 ml 480 ml Balance 1140 ml 360 ml 480 ml Intake Oral 1140 ml 360 ml 480 ml # Voids 6 2 3 # Bowel Movements 0 0 0 Objective Remarks Left lower extremity clean dry dressings intact. Mild swelling. Calf. Active dorsiflexion plantar flexion of foot Iliac crest graft harvest site incision well aligned no erythema. Moderate bruising. Dressing clean dry and intact Assessment & Plan Assessment and Plan 1) Left Tibia Fx s/p IMN with ICBG - POD 2 -TTWB -ice -daily dressing changes left tibia as well as iliac crest bone graft site -CM for rehab options. patient lives in and will not be safe to go home -will change patients pain meds to norco. reports allergy to Acetaminophen but has been on [place] for 4 months on outpatient basis with no issues. -f/u with Neri or JIMMY in 2 weeks Sadiq Eid Jr. Oct 15, 2017 06:54
[2017-10-15] MEDS: FLUoxetine HCL 10 MG CAP PO SCH (08:07)
[2017-10-15] MEDS: DIVALPROEX SODIUM SPRINKLES 125 MG CAP PO SCH ×3 (08:07→17:28)
[2017-10-15] MEDS: CALCIUM/VITAMIN D 250 MG/125 U TAB PO SCH ×3 (08:07→17:28)
[2017-10-15] MEDS: AMITRIPTYLINE HCL 75 MG TAB PO SCH (08:07)
[2017-10-15] MEDS: PREGABALIN 75 MG CAP PO SCH ×3 (08:07→17:28)
[2017-10-15] MEDS: ALLOPURINOL 100 MG TAB PO SCH (08:08)
[2017-10-15] MEDS: ASCORBIC ACID 500 MG TAB PO SCH (08:08)
[2017-10-15] MEDS: CHOLECALCIFEROL (VIT D3) 1000 UNIT TAB PO SCH (08:08)
[2017-10-15] MEDS: HYDROmorphone HCL PF 2 MG/ML VIAL IV PUSH PRN (08:09)
[2017-10-15] MEDS: LACTATED RINGER'S 1000 ML INJ 1,000 ML IV SCH ×2 (08:19→13:30)
[2017-10-15 08:23] VITALS: BP 148/76; PULSE 94; RESP 18; TEMP 97.9; O2SAT 97
[2017-10-15] MEDS: KETOROLAC TROMETHAMINE 30 MG/ML (IVP) VIAL IV PUSH SCH ×2 (11:45→17:28)
[2017-10-15] MEDS: ENOXAPARIN SODIUM 40 MG/0.4 ML SYRINGE SQ SCH (11:45)
[2017-10-15 12:16] VITALS: BP 101/54; PULSE 82; RESP 18; TEMP 97.8; O2SAT 93
[2017-10-15 16:07] VITALS: BP 126/74; PULSE 86; RESP 18; TEMP 97.1; O2SAT 97
[2017-10-15 20:00] VITALS: BP 116/66; PULSE 81; RESP 17; TEMP 96.2; O2SAT 97
[2017-10-16] VITALS: BP 99/58; PULSE 74; RESP 16; TEMP 96; O2SAT 97
[2017-10-16] MEDS: ACETAMINOPHEN/HYDROcodone 325 MG/10 MG TAB PO PRN ×5 (00:29→16:46)
[2017-10-16] MEDS: KETOROLAC TROMETHAMINE 30 MG/ML (IVP) VIAL IV PUSH SCH ×4 (00:29→18:00)
[2017-10-16 03:50] VITALS: BP 151/67; PULSE 73; RESP 17; TEMP 96.8; O2SAT 95
--- NOTE | 2017-10-16 06:42 | PD.ORT.PN ---
Subjective Subjective Remarks Continues to have some pain control issues. No new complaints Objective Vitals Vital Signs Date Time Temp Pulse Resp B/P (MAP) Pulse Ox O2 Delivery O2 Flow Rate FiO2 10/16/17 03:50 96.8 73 17 151/67 (95) 95 10/16/17 00:00 96.0 74 16 99/58 (72) 97 10/15/17 20:00 96.2 81 17 116/66 (83) 97 10/15/17 18:28 16 10/15/17 18:28 16 10/15/17 16:24 16 10/15/17 16:07 97.1 86 18 126/74 (91) 97 10/15/17 12:16 97.8 82 18 101/54 (70) 93 10/15/17 08:39 16 10/15/17 08:23 97.9 94 18 148/76 (100) 97 I/O 10/15/17 10/15/17 10/15/17 10/16/17 10/16/17 10/16/17 07:00 15:00 23:00 07:00 15:00 23:00 Intake Total 480 ml 480 ml 720 ml 360 ml Balance 480 ml 480 ml 720 ml 360 ml Intake Oral 480 ml 480 ml 720 ml 360 ml # Voids 3 3 1 1 # Bowel Movements 0 0 Objective Remarks Left lower extremity clean dry dressings intact. Mild swelling. Calf. Active dorsiflexion plantar flexion of foot Iliac crest graft harvest site incision well aligned no erythema. Moderate bruising. Dressing clean dry and intact Assessment & Plan Assessment and Plan 1) Left Tibia Fx s/p IMN with ICBG - POD 3 -TTWB -ice -daily dressing changes left tibia as well as iliac crest bone graft site -CM for rehab options. DC to rehabilitation when bed available -will change patients pain meds to norco. reports allergy to Acetaminophen but has been on [place] for 4 months on outpatient basis with no issues. -f/u with Neri or JIMMY in 2 weeks Sadiq Eid Jr. Oct 16, 2017 06:42
[2017-10-16 08:00] VITALS: BP 158/87; PULSE 73; RESP 18; TEMP 96.1; O2SAT 99
[2017-10-16] MEDS: LACTATED RINGER'S 1000 ML INJ 1,000 ML IV SCH (09:30)
[2017-10-16 10:11] VITALS: O2SAT 99
[2017-10-16] MEDS: ALLOPURINOL 100 MG TAB PO SCH (10:27)
[2017-10-16] MEDS: AMITRIPTYLINE HCL 75 MG TAB PO SCH (10:27)
[2017-10-16] MEDS: PREGABALIN 75 MG CAP PO SCH ×3 (10:27→18:00)
[2017-10-16] MEDS: ASCORBIC ACID 500 MG TAB PO SCH (10:28)
[2017-10-16] MEDS: FLUoxetine HCL 10 MG CAP PO SCH (10:28)
[2017-10-16] MEDS: DIVALPROEX SODIUM SPRINKLES 125 MG CAP PO SCH ×3 (10:28→18:00)
[2017-10-16] MEDS: CHOLECALCIFEROL (VIT D3) 1000 UNIT TAB PO SCH (10:28)
[2017-10-16] MEDS: CALCIUM/VITAMIN D 250 MG/125 U TAB PO SCH ×3 (10:28→18:00)
[2017-10-16] MEDS: ENOXAPARIN SODIUM 40 MG/0.4 ML SYRINGE SQ SCH (10:29)
[2017-10-16 12:00] VITALS: BP 125/72; PULSE 74; RESP 18; TEMP 97.3; O2SAT 97
[2017-10-16 16:00] VITALS: BP 91/56; PULSE 85; RESP 18; TEMP 96.6; O2SAT 97
[2017-10-16] MEDS ORDERED: MAGNESIUM HYDROXIDE SUSP 30 ML CUP PO PRN (16:30)
== END 2017-10-16 18:09 | DRG 493 ==
LOC: HSDC 05:56 → HSDI 11:09 → N06B 14:24
PROVIDERS: ADMIT Orthopaedic Surgery Orthopaedic Trauma; ATTEND Orthopaedic Surgery Orthopaedic Trauma
PROC: 0QUH07Z Supplement Left Tibia with Autologous Tissue Substitute, Open Approach (ICD-10-PCS; 2017-10-13)
PROC: 0QB30ZZ Excision of Left Pelvic Bone, Open Approach (ICD-10-PCS; 2017-10-13)
PROC: 0QSH06Z Reposition Left Tibia with Intramedullary Internal Fixation Device, Open Approach (ICD-10-PCS; principal; 2017-10-13 08:57)
DX: S82.192 Other fracture of upper end of left tibia (principal); Z68.41 Body mass index [BMI] 40.0-44.9, adult; M10.9 Gout, unspecified; F31.9 Bipolar disorder, unspecified; E66.9 Obesity, unspecified; G62.9 Polyneuropathy, unspecified; F17.200 Nicotine dependence, unspecified, uncomplicated; Z88.5 Allergy status to narcotic agent
CPT/HCPCS: 73590; 76000; 87015; 87070; 87102; 87116; 87176; 87205; 87206; 93005; 94150; J0131; J0360; J0690; J1100; J1170; J1580; J1650; J1885; J2250; J2405; J3010; J3370; J7050; J7120; J8501

== ENCOUNTER 2018-06-21 05:32 | Inpatient (IN) ==
[2018-06-21] MEDS ORDERED: Chlorhexidine Gluconate 2% 1 Pack (2 Cloths) TOPICAL ONE (05:56)
[2018-06-21] MEDS ORDERED: Metoprolol Tartrate 25 MG Tablet PO ONE (05:56)
[2018-06-21] MEDS ORDERED: Chlorhexidine 4% Topical 120 APPLIC/120 ML Bottle TOPICAL SCH (06:00)
[2018-06-21] MEDS ORDERED: Vancomycin Inj 1,000 MG in Sodium Chlor 0.9% Inj 250 ML IV.SIG SCH (06:00)
[2018-06-21] MEDS ORDERED: ceFAZolin 2 GM Premix Inj 2 GM/50 ML PIGGYBACK IV.SIG SCH (06:00)
[2018-06-21] MEDS ORDERED: Sodium Chlor 0.9% Inj 500 ML IV.SIG SCH (06:00)
[2018-06-21] MEDS ORDERED: Ketorolac Inj 30 MG/ML (IVP) Vial IV.PUSH ONE (08:15)
[2018-06-21] MEDS ORDERED: Phenylephrine/NS 1000 MCG/10ML Syringe IV.PUSH ONE (08:15)
[2018-06-21] MEDS ORDERED: Glycopyrrolate Inj 1 MG/5 ML Syringe IV.PUSH ONE (08:15)
[2018-06-21] MEDS ORDERED: Neostigmine Inj 5 MG/5 ML Syringe IV.PUSH ONE (08:15)
[2018-06-21] MEDS ORDERED: TIZANIDINE 2 MG PO PRN (11:10)
[2018-06-21] MEDS ORDERED: Post-op Orders (for Pharmacy) OTHER STA (11:12)
--- NOTE | 2018-06-21 11:21 | P.OP ---
- Preoperative Diagnosis (1) Stress fracture, left tibia, subsequent encounter for fracture with nonunion Date of procedure: 06/21/18 Procedure: Removal of deep hardware left tibia, open treatment of left tibia nonunion, open reduction internal fixation left tibia, iliac crest bone graft Anesthesia: SHELLIE Surgeon: Rj Cowan MD Studio Camera Operator: WINSOME Kenney PA-C The surgical procedure was assisted by my physician multimedia assistant. My P.A. presence was necessary throughout this case for the manipulation and positioning of the surgical extremity. My P.A. was assisting me throughout the duration of this procedure. The skill set of a physician multimedia assistant was medically necessary to complete this procedure. During the surgical case the assembler surgical garment was working at the back table and the physician multimedia assistant was directly assisting me. Operation and Findings: Frida is well-known to me from previous treatment of left proximal tibia nonunion. 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 The tibial nail is broken. She has been having severe pain and wished to proceed with surgery. The risk and benefits of surgery were discussed in depth with patient. All questions were answered. The risk and benefits of surgery were discussed in depth with patient. The risk of surgery include bleeding, infection, injuries to arteries, nerves, or blood vessels, infection, wound complications, nonunion, malunion, painful hardware, and need for further surgery. I also discussed medical complications including blood clots, pneumonia, stroke, heart attack, and . Informed consent was obtained and all questions were answered. Operative site was marked. Informed consent was confirmed. Patient was brought to operating room. She is given IV sedation and general anesthesia. Antibiotics were held until cultures were obtained. Left leg and right iliac crest region were prepped with alcohol followed Hibiclens and draped in usual sterile fashion. Timeout procedure was performed. Procedure began with removal of deep hardware. Multiple incisions were made for a removal of the screws. Each screw was identified under fluoroscopy. Using appropriate screwdrivers each of the screws was now removed. Next a 3 cm incision was made over the patellar tendon. A medial arthrotomy was created. Curettes were used to debride bone around the top of the nail. At this point a ball-tipped guidepin was advanced down the canal of the tibia through the nail. A second guidepin was now passed into the nail as well. The second guidepin locked the ball-tipped guidepin from passing back up through the nail. The nail was now back slapped. With significant difficulty, the nail was eventually removed. Fluoroscopy confirmed appropriate removal of hardware. At this point is to return to the nonunion. Curettes and rongeurs were used to to debride the fibrous tissue. All fibrous tissue was removed from the nonunion. TPS bur was also used to debride bone. Next attention was turned towards open reduction internal fixation of fracture. Decision was made to convert to a plate. A Synthes 4.5 mm proximal tibial plate was selected. A 3 cm incision was made over the anterolateral tibia. Care was taken to maintain appropriate skin bridges from other incisions. Iliotibial band was split in line with fibers. Soft tissue was elevated. At this point the plate was placed in a percutaneous fashion underneath the anterior tibialis. The fracture was mobilized. The fracture was held in a reduced position. 4.5 cortical screws were used to compress plate to bone proximally distally. Fluoroscopy confirmed excellent alignment of the tibia with well-placed hardware. Multiple locking screws were now placed proximally. Multiple cortical screws were placed distally. Fluoroscopy confirmed appropriate alignment of fracture with well-placed hardware. At this point a medium Infuse graft was opened. The Infuse was mixed appropriately and allowed to set. Next attention was turned iliac crest bone grafting. A 3 cm incision was made over the iliac crest. Subcutaneous tissue dissected with Bovie. Osteotomes were used to create a window in the iliac crest. Bone graft was now harvested from the iliac crest using curettes. After completion of harvesting of the bone graft fascia was closed with #1 Vicryl. Subcutaneous tissues closed with 3-0 Vicryl. Skin was closed with marcial. The incision area was infiltrated with quarter percent Marcaine with epinephrine. The Infuse was mixed with iliac crest bone graft. This bone graft with Infuse was now packed in the fracture nonunion site. The defect was completely filled. Fascia and iliotibial band closed with #1 Vicryl,. Subcutaneous tissues closed with 3-0 Vicryl and skin was closed with marcial. Sterile dressings were applied. The patient was transferred to recovery in stable condition.
[2018-06-21] MEDS ORDERED: Bupivacaine/Epinephrine Inj 0.25% 50 ML Vial ONE (11:23)
[2018-06-21] MEDS ORDERED: HYDROmorphone PF Inj 2 MG/ML Vial ONE ×2 (12:00→12:18)
[2018-06-21] MEDS ORDERED: *Meperidine Inj 25 MG/ML Vial PERIprocedural Use ONLY ONE (12:08)
[2018-06-21] MEDS ORDERED: fentaNYL Citrate Inj 100 MCG/2 ML Ampul ONE (12:10)
[2018-06-21] MEDS ORDERED: Butalbital/APAP/Caff 50/325/40 MG Tablet PO PRN (12:45)
--- NOTE | 2018-06-21 12:52 | XR ---
EXAM DATE: 06/21/2018 12:47 PM EDT AGE/SEX: 52 years / Female INDICATIONS: Hardware removal and ORIF left lower leg. CLINICAL DATA: This is the patient's initial encounter. Patient reports that signs and symptoms have been present for 1 day and indicates a pain score of Nonresponsive. MEDICAL/SURGICAL HISTORY: None. . Previous left tibia fracture. . ORIF left tibia. COMPARISON: No prior exams available for comparison. FINDINGS: 6 spot intraoperative fluoroscopic views of the left tibia and fibula demonstrate lateral plate and s crew fixation across the proximal tibial metaphyseal fracture with prominent callus formation. Slight ly displaced proximal fibular metaphyseal fracture with exuberant callus formation. CONCLUSION: ORIF left tibia. Electronically signed by: Preston Chew MD 06/21/2018 12:51 PM EDT
[2018-06-21] MEDS: Calcium/Vitamin D 250/125 MG Tablet PO SCH ×2 (13:00→18:33)
[2018-06-21] MEDS: Divalproex 125 MG DR Tablet PO SCH ×2 (13:00→18:33)
[2018-06-21] MEDS: Pregabalin 75 MG Capsule PO SCH ×2 (13:00→18:36)
[2018-06-21] MEDS ORDERED: ceFAZolin Inj 2,000 MG in Sodium Chlor 0.9% Inj 80 ML IV.SIG SCH (18:00)
[2018-06-21] MEDS: ceFAZolin 2 GM Premix Inj 2 GM/100 ML BAG IV.SIG SCH (18:32)
[2018-06-21] MEDS: Morphine Inj 4 MG/ML Vial IV.PUSH PRN (18:51)
[2018-06-21] MEDS: Senna/Docusate Sodium 8.6/50 MG Tablet PO SCH (20:33)
[2018-06-21] MEDS: Metoprolol Tartrate 50 MG Tablet PO SCH (20:33)
[2018-06-21] MEDS ORDERED: Calcium/Vitamin D 250/125 MG Tablet PO SCH (21:00)
[2018-06-21] MEDS ORDERED: Vancomycin Inj 1 GM/200 ML PIGGYBACK IV.SIG SCH (22:00)
[2018-06-21] MEDS ORDERED: Sod Chloride 0.9% Inj 1,000 ML IV.SIG ONE (22:30)
[2018-06-21] MEDS: Vancomycin Inj 1,000 MG in Sodium Chlor 0.9% Inj 250 ML IV.SIG SCH (22:40)
[2018-06-22] MEDS: KCL 20 mEq/D5W/NaCl 0.45% Inj 1,000 ML IV.SIG SCH ×4 (00:14→23:52)
[2018-06-22] MEDS: ceFAZolin 2 GM Premix Inj 2 GM/100 ML BAG IV.SIG SCH ×3 (02:00→17:52)
[2018-06-22] MEDS: Morphine Inj 4 MG/ML Vial IV.PUSH PRN ×2 (04:37→08:13)
--- NOTE | 2018-06-22 06:41 | P.PNOP ---
Subjective Interval history: POD 1 s/p removal of IMN with revision ORIF and ICBG of left proximal tibia nonunion significant pain yesterday and overnight. reports that pain meds not effective. Physical Exam Vital signs: Vital Signs 06/21/18 12:00 06/21/18 12:15 06/21/18 12:30 Temperature 97.4 F L Pulse Rate 64 67 74 Respiratory Rate 23 26 H 22 Blood Pressure 116/75 114/66 141/83 H Pulse Oximetry 100 100 100 06/21/18 12:45 06/21/18 13:00 06/21/18 13:07 Temperature Pulse Rate 66 67 Respiratory Rate 24 14 13 Blood Pressure 113/76 126/58 L Pulse Oximetry 100 100 06/21/18 13:15 06/21/18 13:30 06/21/18 13:45 Temperature Pulse Rate 70 75 77 Respiratory Rate 11 L 11 L 15 Blood Pressure 121/57 L 126/62 114/59 L Pulse Oximetry 100 100 100 06/21/18 14:00 06/21/18 14:15 06/21/18 16:00 Temperature 97.8 F 98.1 F Pulse Rate 79 80 78 Respiratory Rate 19 18 16 Blood Pressure 112/56 L 118/56 L 95/55 L Pulse Oximetry 100 100 92 L 06/21/18 20:00 06/22/18 00:00 Temperature 98.0 F 97.5 F L Pulse Rate 86 71 Respiratory Rate 19 18 Blood Pressure 88/53 L 103/55 L Pulse Oximetry 96 97 Intake & Output 06/21/18 06/21/18 06/22/18 06:59 18:59 06:59 Intake Total 300 / 300 2450 / 2450 Output Total 175 / 175 Balance 125 / 125 2450 / 2450 Weight 97 kg 96.615 kg Intake: IV 300 / 300 2450 / 2450 LR 1000 mL Inj 1,000 ML @ 80 1000 / 1000 mls/hr IV.CONT .[id number] [facility] Rx# :[id number] NS Inj 1,000 ML @ 1000 mls/hr 1000 / 1000 IV.SIG .Q1H ONE Rx#:[id number] Vancomycin Inj 1,000 MG In NS 250 / 250 250 / 250 Inj 250 ML @ 250 mls/hr IV.SIG Q12H [facility] Rx#:[id number] Ancef 2 GM Premix Inj 2 gm In 200 / 200 100 ml @ 200 mls/hr IV.SIG Q8H [facility] Rx#:[id number] Ancef 2 GM Premix Inj 2 gm In 50 / 50 50 ml @ 100 mls/hr IV.SIG GLASS BENDER [facility] Rx#:[id number] Output: Estimated Blood Loss 175 / 175 Other: Date of Last Bowel Movement 06/20/18 Weight On Admission 97.4 kg Narrative: LLE: dressings clean and dry. moderate swelling of lower leg. compartments soft. +ability to dorsiflex ankle. NVI distally RLE: dressing clean and dry. Results - Imaging Impressions Tibia/Fibula X-Ray 06/21/18 00:00 CONCLUSION: ORIF left tibia. Assessment and Plan - Assessment and Plan 1) removal of IMN with revision ORIF and ICBG of left proximal tibia nonunion - POD 1 -NWB -knee brace at all times -elevate and ice -pain control -DVT prophylaxis -PROM 0-90deg if tolerated -DC planning for home with [facility] if pain controlled appropriately -f/u with Neri or JIMMY in 2 weeks
--- NOTE | 2018-06-22 06:42 | P.DCO ---
- Physical Therapy Physical Therapy: Gait training, Safety evaluation Knee: Knee fracture, Protocol: Left, Non weight bearing Canvas Knee Splint: At all times Left Lower Extremity Weight Bearing: Non-weight bearing, No strengthening, No quad sets Left Lower Extremity Range of Motion: Passive ROM (0-90deg) - Nursing Dressing changes: Daily dressing change, Cas wrap, 4x4s, Xeroform - Certification Need for Home Health services: I have seen patient Frida Harrison on 06/22/18. My clinical findings support the need for the requested home health care services because: Need for Home Health Services: Limited mobility due to disease progression Homebound Certification: I certify that my clinical findings support that this patient is homebound because: Homebound Certification: Post-op weakness
[2018-06-22 07:26] LABS: Hematocrit 25.7 % (35.0-46.0); Hemoglobin 8.5 gm/dL (11.6-15.3)
[2018-06-22] MEDS: FLUoxetine 10 MG Capsule PO SCH (08:09)
[2018-06-22] MEDS: Senna/Docusate Sodium 8.6/50 MG Tablet PO SCH ×2 (08:10→20:39)
[2018-06-22] MEDS: Pregabalin 75 MG Capsule PO SCH ×3 (08:10→17:22)
[2018-06-22] MEDS: Divalproex 125 MG DR Tablet PO SCH ×3 (08:10→17:22)
[2018-06-22] MEDS: Calcium/Vitamin D 250/125 MG Tablet PO SCH ×3 (08:10→17:22)
[2018-06-22] MEDS: Metoprolol Tartrate 50 MG Tablet PO SCH (08:11)
[2018-06-22] MEDS: Allopurinol 100 MG Tablet PO SCH (08:13)
[2018-06-22] MEDS: Lisinopril 20 MG Tablet PO SCH (08:13)
[2018-06-22] MEDS: Enoxaparin Inj 40 MG/0.4 ML Syringe SQ SCH (10:31)
[2018-06-22] MEDS: Vancomycin Inj 1,000 MG in Sodium Chlor 0.9% Inj 250 ML IV.SIG SCH (10:32)
[2018-06-22] MEDS: oxyCODONE/Acetaminophen 10/325 Tablet PO PRN ×2 (11:43→20:39)
--- NOTE | 2018-06-22 11:56 | P.CON ---
History of Present Illness Service: Orthopedic surgery Reason for Consult: Medical management Primary Care Provider: Donaldo Swain DO Family Provider: Donaldo Swain DO Chief Complaint: Medical management History of Present Illness: 52-year-old female for past medical history of hypertension, prediabetes who had a previous open reduction internal fixation performed on her left knee, was taken to the operating room on June 21, 2018 and underwent removal of IMN with revision ORIF and ICBG of left proximal tibia nonunion. [facility] was consulted for medical management. Patient endorses left knee and right hip pain otherwise denies any chest pain or shortness of breath. BP currently soft and H&H stable. She denies any GI bleed. Review of Systems All other systems reviewed negative except as stated in HPI PMFSH - History History Provided By: Patient - Medical History Medical History: Medical History (Last Reviewed 06/22/18 @ 08:02 by Tal Overton) Anxiety and depression Chronic pain Guillain Mckeon syndrome History of anesthesia reaction Hx of fracture of foot Hx of fracture of lower leg Hx of ovarian cancer Hypertension Neuropathy Risk for falls Wears dentures Wears glasses - Surgical History Surgical History: Surgical History (Last Reviewed 06/22/18 @ 08:02 by Tal Overton) History of fusion of cervical spine Hx of abdominal hysterectomy Hx of arthroscopy of left knee Hx of arthroscopy of right knee - Tobacco History Second Hand Smoke Exposure: No Tobacco Use In Past 30 Days: No Smoking Status: Never smoker - Alcohol History How Often Do You Have a Drink Containing Alcohol: 2 to 4 times a month - Substance Use History Substance History: No History of Abuse - Travel History Recent Travel in the [place] Within the Last 8 Weeks: No Recent Travel Out of the Country Within the Last 8 Weeks: No - Immunization History Tetanus Immunization: Unsure Hx Influenza Vaccine This Season: No Medications and Allergies Active Medications: Active Medications Acetaminophen/Butalbital/Caffeine (Fioricet 50-325-40) 1 tab PO Q4H PRN PRN Reason: HEADACHE Al Hydroxide/Mg Hydroxide (Milk Of Magnesia Liq) 30 ml PO BID PRN PRN Reason: MILD CONSTIPATION Allopurinol (Zyloprim) 100 mg PO DAILY [facility] Last Admin: 06/22/18 08:13 Dose: 100 mg Amitriptyline HCl (Elavil) 75 mg PO DAILY [facility] Last Admin: 06/22/18 08:10 Dose: 75 mg Calcium/Vitamin D (Oscal With D 250/125 Mg) 1 tab PO TID [facility] Last Admin: 06/22/18 08:10 Dose: 1 tab Chlorhexidine Gluconate (Hibiclens 4% Topical) 1 applicatio TOPICAL ONCE [facility] Stop: 06/25/18 05:59 Diphenhydramine HCl (Benadryl) 25 mg PO Q6H PRN PRN Reason: ITCHING Divalproex Sodium (Depakote Dr) 125 mg PO TID [facility] Last Admin: 06/22/18 08:10 Dose: 125 mg Enoxaparin Sodium (Lovenox Inj) 40 mg SQ Q24H [facility] Last Admin: 06/22/18 10:31 Dose: 40 mg Fluoxetine HCl (Prozac) 10 mg PO DAILY [facility] Last Admin: 06/22/18 08:09 Dose: 10 mg Hydromorphone HCl (Dilaudid Pf Inj) 2 mg IV.PUSH Q3H PRN PRN Reason: BREAKTHROUGH PAIN Sodium Chloride (Ns Inj) 500 mls @ 30 mls/hr IV.SIG .Q10H [facility] Last Admin: 06/21/18 07:09 Dose: Not Given Lactated Ringer's (Lr 1000 Ml Inj) 1,000 mls @ 80 mls/hr IV.CONT .[id number] [facility] Last Infusion: 06/22/18 06:02 Dose: Infused Cefazolin/Sodium Chloride (Ancef 2 Gm Premix Inj) 2 gm in 100 mls @ 200 mls/hr IV.SIG Q8H [facility] Stop: 06/23/18 10:29 Last Infusion: 06/22/18 11:00 Dose: 0 mls/hr Potassium Chloride/Dextrose/Sod Cl (D5w/1/2ns + Kcl 20 Meq Inj) 1,000 mls @ 125 mls/hr IV.SIG .Q8H [facility] Last Admin: 06/22/18 08:13 Dose: 125 mls/hr Lisinopril (Prinivil) 20 mg PO DAILY [facility] Last Admin: 06/22/18 08:13 Dose: Not Given Metoprolol Tartrate (Lopressor) 50 mg PO BID [facility] Last Admin: 06/22/18 08:11 Dose: Not Given Miscellaneous Information (Misc Nursing Information) 1 each OTHER UNSCH PRN PRN Reason: SEE LABEL COMMENTS Stop: 06/22/18 14:53 Ondansetron HCl (Zofran Odt) 4 mg PO Q6H PRN PRN Reason: NAUSEA OR VOMITING Ondansetron HCl (Zofran Inj) 4 mg IV.PUSH Q6H PRN PRN Reason: NAUSEA Oxycodone/Acetaminophen (Percocet 10/325 Mg) 1 tab PO Q3H PRN PRN Reason: pain 3-10 Last Admin: 06/22/18 11:43 Dose: 1 tab Pantoprazole Sodium (Protonix) 40 mg PO DAILY [facility] Last Admin: 06/22/18 08:09 Dose: 40 mg Pregabalin (Lyrica) 75 mg PO TID [facility] Last Admin: 06/22/18 08:10 Dose: 75 mg Senna/Docusate Sodium (Lisa-Colace) 1 tab PO BID [facility] Last Admin: 06/22/18 08:10 Dose: 1 tab Sodium Chloride (Ns Flush) 2 ml IV.FLUSH BID [facility] Last Admin: 06/22/18 08:13 Dose: 2 ml Sodium Chloride (Ns Flush) 2 ml IV.FLUSH PRN PRN PRN Reason: FLUSH AFTER USING IV ACCESS Tizanidine HCl (Zanaflex) 2 mg PO Q6H PRN PRN Reason: MUSCLE PAIN Last Admin: 06/22/18 10:35 Dose: 2 mg Vitamin D (Vitamin D3) 5,000 unit PO DAILY [facility] Last Admin: 06/22/18 08:09 Dose: 5,000 unit Allergies Allergy/AdvReac Type Severity Reaction Status Date / Time bupropion Allergy Severe Itching Verified 06/21/18 06:40 propoxyphene Allergy Severe Gastrointestinal Verified 06/21/18 06:40 Upset codeine AdvReac Severe NAUSEA Verified 06/21/18 06:40 morphine AdvReac Severe AGITATION Verified 06/21/18 06:40 Home Medications Medication Instructions Recorded Confirmed Type allopurinol 100 mg PO DAILY 06/20/18 06/21/18 History amitriptyline 75 mg PO DAILY 06/20/18 06/21/18 History calcium carbonate-vitamin D3 1 tab PO BID 06/20/18 06/21/18 History [Calcium 600 + D(3)] divalproex [Depakote] 125 mg PO TID 06/20/18 06/21/18 History fluoxetine [Prozac] 10 mg PO DAILY 06/20/18 06/21/18 History lisinopril 20 mg PO DAILY 06/20/18 06/21/18 History metoprolol tartrate 50 mg PO BID 06/20/18 06/21/18 History pregabalin [Lyrica] 150 mg PO TID 06/20/18 06/21/18 History tizanidine 2 mg PO Q6-8H PRN 06/20/18 06/21/18 History lwmyrxglor-cbcexhafcilmc-jbsp 1 cap PO Q4H PRN 06/21/18 06/21/18 History [Fioricet] meloxicam 15 mg PO DAILY 06/21/18 06/21/18 History omeprazole 40 mg PO DAILY 06/21/18 06/21/18 History tizanidine 2 mg PO Q6-8H PRN 06/21/18 06/21/18 History Physical Exam Vital signs: Vital Signs 06/21/18 12:00 06/21/18 12:15 06/21/18 12:30 Temperature 97.4 F L Pulse Rate 64 67 74 Respiratory Rate 23 26 H 22 Blood Pressure 116/75 114/66 141/83 H Pulse Oximetry 100 100 100 06/21/18 12:45 06/21/18 13:00 06/21/18 13:07 Temperature Pulse Rate 66 67 Respiratory Rate 24 14 13 Blood Pressure 113/76 126/58 L Pulse Oximetry 100 100 06/21/18 13:15 06/21/18 13:30 06/21/18 13:45 Temperature Pulse Rate 70 75 77 Respiratory Rate 11 L 11 L 15 Blood Pressure 121/57 L 126/62 114/59 L Pulse Oximetry 100 100 100 06/21/18 14:00 06/21/18 14:15 06/21/18 16:00 Temperature 97.8 F 98.1 F Pulse Rate 79 80 78 Respiratory Rate 19 18 16 Blood Pressure 112/56 L 118/56 L 95/55 L Pulse Oximetry 100 100 92 L 06/21/18 20:00 06/22/18 00:00 06/22/18 04:00 Temperature 98.0 F 97.5 F L 97.6 F Pulse Rate 86 71 72 Respiratory Rate 19 18 18 Blood Pressure 88/53 L 103/55 L 110/53 L Pulse Oximetry 96 97 95 06/22/18 08:00 Temperature 97.8 F Pulse Rate 18 L Respiratory Rate 18 Blood Pressure 96/53 L Pulse Oximetry 99 Intake & Output 06/21/18 06/22/18 06/22/18 18:59 06:59 18:59 Intake Total 300 / 300 2450 / 2450 1000 / 1000 Output Total 175 / 175 850 / 850 Balance 125 / 125 1600 / 1600 1000 / 1000 Weight 96.615 kg Intake: IV 300 / 300 2450 / 2450 1000 / 1000 LR 1000 mL Inj 1,000 ML @ 80 1000 / 1000 mls/hr IV.CONT .[id number] [facility] Rx# :[id number] D5W/1/2NS + KCL 20 mEq Inj 1, 1000 / 1000 000 ML @ 125 mls/hr IV.SIG .Q8H [facility] Rx#:[id number] NS Inj 1,000 ML @ 1000 mls/hr 1000 / 1000 IV.SIG .Q1H [facility] Rx#:[id number] Vancomycin Inj 1,000 MG In NS 250 / 250 250 / 250 Inj 250 ML @ 250 mls/hr IV.SIG Q12H [facility] Rx#:[id number] Ancef 2 GM Premix Inj 2 gm In 200 / 200 100 ml @ 200 mls/hr IV.SIG Q8H [facility] Rx#:[id number] Ancef 2 GM Premix Inj 2 gm In 50 / 50 50 ml @ 100 mls/hr IV.SIG [facility] Rx#:[id number] Output: Urine 850 / 850 Estimated Blood Loss 175 / 175 Other: Date of Last Bowel Movement 06/20/18 Narrative: GENERAL: NAD SKIN: Warm and dry. HEAD: Normocephalic. EYES: No scleral icterus. No injection or drainage. NECK: Supple, trachea midline. No JVD or lymphadenopathy. CARDIOVASCULAR: Regular rate and rhythm without murmurs, gallops, or rubs. RESPIRATORY: Breath sounds equal bilaterally. No accessory muscle use. GASTROINTESTINAL: Abdomen soft, non-tender, nondistended. LLE: dressings clean and dry. moderate swelling of lower leg. compartments soft. +ability to dorsiflex ankle. RLE: dressing clean and dry. Assessment and Plan - Plan 52-year-old female with s/p removal of IMN with revision ORIF and ICBG of left proximal tibia nonunion June 21, 2018 Management per orthopedic surgery Continue with current pain management PT to treat and eval Lovenox for DVT prophylaxis Hypertension Continue with home medications with holding parameters Diet-controlled diabetes, stable Anxiety and depression Continue outpatient medications DVT prophylaxis: Lovenox Thank you for this consultation
[2018-06-22] MEDS: HYDROmorphone PF Inj 2 MG/ML Vial IV.PUSH PRN ×2 (16:30→23:48)
[2018-06-23] MEDS: Metoprolol Tartrate 50 MG Tablet PO SCH ×3 (01:28→20:44)
[2018-06-23] MEDS ORDERED: Fluconazole 100 MG Tablet PO ONE (01:54)
[2018-06-23] MEDS: oxyCODONE/Acetaminophen 10/325 Tablet PO PRN ×4 (05:12→17:20)
[2018-06-23] MEDS: ceFAZolin 2 GM Premix Inj 2 GM/100 ML BAG IV.SIG SCH ×2 (05:13→10:48)
[2018-06-23] MEDS: HYDROmorphone PF Inj 2 MG/ML Vial IV.PUSH PRN ×2 (06:08→10:49)
--- NOTE | 2018-06-23 06:38 | P.PNOP ---
Subjective Interval history: POD 2 s/p BRYAN with ORIF left tibia improving. states the change of pain med have helped Physical Exam Vital signs: Vital Signs 06/22/18 08:00 06/22/18 12:00 06/22/18 16:00 Temperature 97.8 F 97.9 F 98 F Pulse Rate 18 L 77 69 Respiratory Rate 18 18 18 Blood Pressure 96/53 L 90/51 L 92/50 L Pulse Oximetry 99 98 98 06/22/18 20:00 06/23/18 00:00 06/23/18 04:00 Temperature 97.7 F 99.5 F 98.1 F Pulse Rate 84 98 H 92 H Respiratory Rate 18 18 18 Blood Pressure 99/60 L 100/66 96/52 L Pulse Oximetry 94 L 95 97 Intake & Output 06/22/18 06/22/18 06/23/18 06:59 18:59 06:59 Intake Total 2450 / 2450 2800 / 2800 1200 / 1200 Output Total 850 / 850 1200 / 1200 1300 / 1300 Balance 1600 / 1600 1600 / 1600 -100 / -100 Weight 103.2 kg Intake: IV 2450 / 2450 2100 / 2100 1200 / 1200 LR 1000 mL Inj 1,000 ML @ 80 1000 / 1000 mls/hr IV.CONT .[id number] [facility] Rx# :[id number] D5W/1/2NS + KCL 20 mEq Inj , 1999 / 1999 1000 / 1000 000 ML @ 125 mls/hr IV.SIG .Q8H [facility] Rx#:[id number] NS Inj 1,000 ML @ 1000 mls/hr 1000 / 1000 IV.SIG .Q1H [facility] Rx#:[id number] Vancomycin Inj 1,000 MG In NS 250 / 250 Inj 250 ML @ 250 mls/hr IV.SIG Q12H [facility] Rx#:[id number] Ancef 2 GM Premix Inj 2 gm In 200 / 200 100 / 100 200 / 200 100 ml @ 200 mls/hr IV.SIG Q8H [facility] Rx#:[id number] Oral 700 / 700 Output: Urine 850 / 850 0 / 0 1300 / 1300 Urine Amount (Catheter) 1200 / 1200 Straight 1200 / 1200 Other: Date of Last Bowel Movement 06/20/18 06/20/18 # Bowel Movements 0 Narrative: LLE: +CKS. dressings clean and dry. intact. NVI. +dorsiflexion. compartments soft. - Urinary Catheter Management Straight Cath placed during this visit: yes Reason for continuing: Not indwelling catheter Insertion date: 06/22/18 Insertion time: 14:00 Results - Labs CBC & Chem 7: 06/22/18 06:43 Laboratory Results - last 24 hr 06/22/18 06:43 Hgb 8.5 L Hct 25.7 L Microbiology 06/21/18 09:47 Wound - Other Gram Stain - Final 06/21/18 09:47 Wound - Other Wound Culture - Preliminary No growth in 24 hours 06/21/18 12:30 Wound - Foot Acid Fast Bacilli Smear - Final No acid fast bacilli seen 06/21/18 12:30 Wound - Foot Fungal Smear - Final No fungal elements seen Assessment and Plan - Problem List (1) Stress fracture, left tibia, subsequent encounter for fracture with nonunion Code(s): M84.362K - Stress fracture, left tibia, subsequent encounter for fracture with nonunion Status: Acute - Assessment and Plan 1) removal of IMN with revision ORIF and ICBG of left proximal tibia nonunion - POD 2 -NWB -knee brace at all times -elevate and ice -pain control -DVT prophylaxis -PROM 0-90deg if tolerated -DC planning for home with HHC vs SNF. eval today. if struggling will need SNF -f/u with Neri or [facility]IMMY in 2 weeks
[2018-06-23] MEDS: Calcium/Vitamin D 250/125 MG Tablet PO SCH ×3 (09:30→17:20)
[2018-06-23] MEDS: Lisinopril 20 MG Tablet PO SCH (09:30)
[2018-06-23] MEDS: FLUoxetine 10 MG Capsule PO SCH (09:30)
[2018-06-23] MEDS: Senna/Docusate Sodium 8.6/50 MG Tablet PO SCH ×2 (09:31→20:43)
[2018-06-23] MEDS: Pregabalin 75 MG Capsule PO SCH ×3 (09:31→17:20)
[2018-06-23] MEDS: Allopurinol 100 MG Tablet PO SCH (09:31)
[2018-06-23] MEDS: Divalproex 125 MG DR Tablet PO SCH ×3 (09:31→17:20)
[2018-06-23] MEDS: Enoxaparin Inj 40 MG/0.4 ML Syringe SQ SCH (10:48)
--- NOTE | 2018-06-23 11:40 | P.PN ---
Subjective Interval history: Patient seen and examined, Complains of left knee pain as well as right hip pain. Afebrile Patient with urinary retention, Reveles was put back in Physical Exam Vital signs: Vital Signs 06/22/18 12:00 06/22/18 16:00 06/22/18 20:00 Temperature 97.9 F 98 F 97.7 F Pulse Rate 77 69 84 Respiratory Rate 18 Blood Pressure 90/51 L 92/50 L 99/60 L Pulse Oximetry 98 98 94 L 06/23/18 00:00 06/23/18 04:00 06/23/18 08:00 Temperature 99.5 F 98.1 F 98.2 F Pulse Rate 98 H 92 H 102 H Respiratory Rate 18 Blood Pressure 100/66 96/52 L 108/57 L Pulse Oximetry 95 97 94 L Intake & Output 06/22/18 06/23/18 06/23/18 18:59 06:59 18:59 Intake Total 2800 / 2800 1200 / 1200 1250 / 1250 Output Total 1200 / 1200 1300 / 1300 Balance 1600 / 1600 -100 / -100 1250 / 1250 Weight 103.2 kg Intake: IV 2100 / 2100 1200 / 1200 1250 / 1250 D5W/1/2NS + KCL 20 mEq Inj 1, 2000 / 2000 1000 / 1000 1000 / 1000 000 ML @ 125 mls/hr IV.SIG .Q8H [facility] Rx#:[id number] Ancef 2 GM Premix Inj 2 gm In 100 / 100 200 / 200 100 ml @ 200 mls/hr IV.SIG Q8H [facility] Rx#:[id number] Oral 700 / 700 Output: Urine 0 / 0 1300 / 1300 Urine Amount (Catheter) 1200 / 1200 Straight 1200 / 1200 Other: Date of Last Bowel Movement 06/20/18 06/20/18 # Bowel Movements 0 Narrative: GENERAL: NAD SKIN: Warm and dry. HEAD: Normocephalic. EYES: No scleral icterus. No injection or drainage. NECK: Supple, trachea midline. No JVD or lymphadenopathy. CARDIOVASCULAR: Regular rate and rhythm without murmurs, gallops, or rubs. RESPIRATORY: Breath sounds equal bilaterally. No accessory muscle use. GASTROINTESTINAL: Abdomen soft, non-tender, nondistended. MUSCULOSKELETAL: No cyanosis, or edema. Brace over left knee. Dressing over right hip BACK: Nontender without obvious deformity. No CVA tenderness. - Urinary Catheter Management Straight Cath placed during this visit: yes Reason for continuing: Acute urinary retention Insertion date: 06/22/18 Insertion time: 14:00 Results - Labs CBC & Chem 7: 06/22/18 06:43 Microbiology 06/21/18 09:47 Wound - Other Gram Stain - Final 06/21/18 09:47 Wound - Other Wound Culture - Preliminary No growth in 48 hours 06/21/18 12:30 Wound - Foot Acid Fast Bacilli Smear - Final No acid fast bacilli seen 06/21/18 12:30 Wound - Foot Fungal Smear - Final No fungal elements seen Assessment and Plan - Plan 52-year-old female with s/p removal of IMN with revision ORIF and ICBG of left proximal tibia nonunion June 21, 2018 Management per orthopedic surgery Continue with current pain management PT to treat and eval Lovenox for DVT prophylaxis Hypertension Continue with home medications with holding parameters Diet-controlled diabetes, stable Anxiety and depression Continue outpatient medications DVT prophylaxis: Lovenox Urinary retention Continue Reveles, consider urology consultation
[2018-06-23] MEDS: KCL 20 mEq/D5W/NaCl 0.45% Inj 1,000 ML IV.SIG SCH ×2 (11:52→17:20)
[2018-06-24] MEDS: KCL 20 mEq/D5W/NaCl 0.45% Inj 1,000 ML IV.SIG SCH ×3 (00:15→18:11)
[2018-06-24] MEDS: oxyCODONE/Acetaminophen 10/325 Tablet PO PRN ×7 (04:03→21:42)
--- NOTE | 2018-06-24 06:56 | P.PNOP ---
Subjective Interval history: POD 3 s/p BRYAN and ORIF and ICBG left tibia improving. still reports pain. unable to use walker yet. reports urinary retention and that catheter was placed again last night. Physical Exam Vital signs: Vital Signs 06/23/18 08:00 06/23/18 12:00 06/23/18 16:00 Temperature 98.2 F 98.1 F 98.7 F Pulse Rate 102 H 100 H 88 Respiratory Rate 18 14 16 Blood Pressure 108/57 L 103/55 L 107/55 L Pulse Oximetry 94 L 95 96 06/23/18 20:00 06/24/18 00:00 Temperature 99.3 F 99 F Pulse Rate 80 86 Respiratory Rate 18 18 Blood Pressure 108/51 L 134/60 Pulse Oximetry 95 100 Intake & Output 06/23/18 06/23/18 06/24/18 06:59 18:59 06:59 Intake Total 1200 / 1200 2080 / 2080 1010 / 1010 Output Total 1300 / 1300 600 / 600 1250 / 1250 Balance -100 / -100 1480 / 1480 -240 / -240 Weight 103.2 kg 105.2 kg Intake: IV 1200 / 1200 1350 / 1350 935 / 935 LR 1000 mL Inj 1,000 ML @ 80 935 / 935 mls/hr IV.CONT .[id number] [facility] Rx# :[id number] D5W/1/2NS + KCL 20 mEq Inj 1, 1000 / 1000 1000 / 1000 000 ML @ 125 mls/hr IV.SIG .Q8H [facility] Rx#:[id number] Ancef 2 GM Premix Inj 2 gm In 200 / 200 100 / 100 100 ml @ 200 mls/hr IV.SIG Q8H [facility] Rx#:[id number] Oral 730 / 730 75 / 75 Output: Urine 1300 / 1300 600 / 600 Urine Amount (Catheter) 1250 / 1250 Indwelling Urethral Catheter 1250 / 1250 Other: # Voids 1 Date of Last Bowel Movement 06/20/18 06/20/18 06/22/18 Narrative: LLE: dressings clean and dry. intact. NVI distally. compartments soft. +CKS RLE: dressing clean and dry. itnact. - Urinary Catheter Management Straight Cath placed during this visit: yes Reason for continuing: Acute urinary retention Insertion date: 06/24/18 Insertion time: 04:35 Indwelling Urethral Catheter Cath placed during this visit: no Results - Labs CBC & Chem 7: 06/22/18 06:43 Microbiology 06/21/18 09:47 Wound - Other Gram Stain - Final 06/21/18 09:47 Wound - Other Wound Culture - Preliminary No growth in 48 hours Assessment and Plan - Problem List (1) Stress fracture, left tibia, subsequent encounter for fracture with nonunion Code(s): M84.362K - Stress fracture, left tibia, subsequent encounter for fracture with nonunion Status: Acute (2) Obesity Code(s): E66.9 - Obesity, unspecified Status: Chronic Qualifiers: Obesity type: unspecified obesity type Obesity classification: adult class 3 (BMI >= 40) - Assessment and Plan 1) removal of IMN with revision ORIF and ICBG of left proximal tibia nonunion - POD 3 -NWB -knee brace at all times -elevate and ice -pain control -DVT prophylaxis -PROM 0-90deg if tolerated -DC planning likely to SNF due to patients inability to ambulate on own -will place urology consult today due to persistent urinary retention and bell placement -f/u with Neri or JIMMY in 2 weeks
[2018-06-24] MEDS: Senna/Docusate Sodium 8.6/50 MG Tablet PO SCH ×2 (09:13→21:42)
[2018-06-24] MEDS: Allopurinol 100 MG Tablet PO SCH (09:13)
[2018-06-24] MEDS: FLUoxetine 10 MG Capsule PO SCH (09:13)
[2018-06-24] MEDS: Calcium/Vitamin D 250/125 MG Tablet PO SCH ×3 (09:13→18:13)
[2018-06-24] MEDS: Metoprolol Tartrate 50 MG Tablet PO SCH ×2 (09:13→21:42)
[2018-06-24] MEDS: Pregabalin 75 MG Capsule PO SCH ×3 (09:13→18:13)
[2018-06-24] MEDS: Divalproex 125 MG DR Tablet PO SCH ×3 (09:14→18:12)
[2018-06-24] MEDS: Lisinopril 20 MG Tablet PO SCH (09:14)
[2018-06-24] MEDS: Enoxaparin Inj 40 MG/0.4 ML Syringe SQ SCH (12:16)
--- NOTE | 2018-06-24 13:23 | P.PN ---
Subjective Interval history: Patient seen and examined, Reveles was reinstated yesterday pending a urology consultation, Still with left knee pain Afebrile Physical Exam Vital signs: Vital Signs 06/23/18 16:00 06/23/18 20:00 06/24/18 00:00 Temperature 98.7 F 99.3 F 99 F Pulse Rate 88 80 86 Respiratory Rate 16 18 18 Blood Pressure 107/55 L 108/51 L 134/60 Pulse Oximetry 96 95 100 06/24/18 08:00 Temperature 98.0 F Pulse Rate 87 Respiratory Rate 16 Blood Pressure 127/59 L Pulse Oximetry 93 L Intake & Output 06/23/18 06/24/18 06/24/18 18:59 06:59 18:59 Intake Total 2080 / 2080 1010 / 1010 Output Total 600 / 600 1250 / 1250 Balance 1480 / 1480 -240 / -240 Weight 105.2 kg Intake: IV 1350 / 1350 935 / 935 LR 1000 mL Inj 1,000 ML @ 80 935 / 935 mls/hr IV.CONT .[id number] [facility] Rx# :[id number] D5W/1/2NS + KCL 20 mEq Inj 1, 1000 / 1000 000 ML @ 125 mls/hr IV.SIG .Q8H [facility] Rx#:[id number] Ancef 2 GM Premix Inj 2 gm In 100 / 100 100 ml @ 200 mls/hr IV.SIG Q8H AC Rx#:[id number] Oral 730 / 730 75 / 75 Output: Urine 600 / 600 Urine Amount (Catheter) 1250 / 1250 Indwelling Urethral Catheter 1250 / 1250 Other: # Voids 1 Date of Last Bowel Movement 06/20/18 06/22/18 06/22/18 Narrative: GENERAL: NAD SKIN: Warm and dry. HEAD: Normocephalic. EYES: No scleral icterus. No injection or drainage. NECK: Supple, trachea midline. No JVD or lymphadenopathy. CARDIOVASCULAR: Regular rate and rhythm without murmurs, gallops, or rubs. RESPIRATORY: Breath sounds equal bilaterally. No accessory muscle use. GASTROINTESTINAL: Abdomen soft, non-tender, nondistended. MUSCULOSKELETAL: No cyanosis, or edema. LLE: dressings clean and dry. intact. NVI distally. compartments soft. +CKS RLE: dressing clean and dry. Intact BACK: Nontender without obvious deformity. No CVA tenderness. - Urinary Catheter Management Straight Cath placed during this visit: yes Reason for continuing: Acute urinary retention Insertion date: 06/24/18 Insertion time: 04:35 Indwelling Urethral Catheter Cath placed during this visit: no Reason for continuing: Acute urinary retention Results - Labs CBC & Chem 7: 06/22/18 06:43 Microbiology 06/21/18 09:47 Wound - Other Gram Stain - Final 06/21/18 09:47 Wound - Other Wound Culture - Final No growth in 72 hours (aerobically and anaerobically ) Assessment and Plan - Plan 52-year-old female with s/p removal of IMN with revision ORIF and ICBG of left proximal tibia nonunion June 21, 2018 Management per orthopedic surgery Continue with current pain management PT to treat and eval Lovenox for DVT prophylaxis Hypertension Continue with home medications with holding parameters Diet-controlled diabetes, stable Anxiety and depression Continue outpatient medications DVT prophylaxis: Lovenox Urinary retention Continue Reveles Urology consultation pending
[2018-06-25] MEDS: KCL 20 mEq/D5W/NaCl 0.45% Inj 1,000 ML IV.SIG SCH ×5 (00:01→23:10)
[2018-06-25] MEDS: oxyCODONE/Acetaminophen 10/325 Tablet PO PRN ×6 (00:31→19:59)
--- NOTE | 2018-06-25 06:51 | P.PNOP ---
Subjective Interval history: Positive bowel movement today. Pain is continuing to slightly improved Physical Exam Vital signs: Vital Signs 06/24/18 08:00 06/24/18 12:00 06/24/18 15:13 Temperature 98.0 F 98.1 F 97.7 F Pulse Rate 87 75 77 Respiratory Rate 16 14 16 Blood Pressure 127/59 L 146/65 H 122/57 L Pulse Oximetry 93 L 94 L 99 06/24/18 20:00 06/25/18 00:00 Temperature 98 F 98.7 F Pulse Rate 94 H 65 Respiratory Rate 19 16 Blood Pressure 115/59 L 101/49 L Pulse Oximetry 100 98 Intake & Output 06/24/18 06/24/18 06/25/18 06:59 18:59 06:59 Intake Total 1010 / 1010 1240 / 1240 Output Total 1250 / 1250 1700 / 1700 1949 / 1950 Balance -240 / -240 -1700 / -1700 -710 / -710 Weight 105.2 kg Intake: IV 935 / 935 1000 / 1000 LR 1000 mL Inj 1,000 ML @ 80 935 / 935 1000 / 1000 mls/hr IV.CONT .[id number] [facility] Rx# :[id number] Oral 75 / 75 240 / 240 Output: Urine Amount (Catheter) 1250 / 1250 1700 / 1700 1949 / 1950 Indwelling Urethral Catheter 1250 / 1250 1700 / 1700 1949 / 1950 Other: # Voids 1 Date of Last Bowel Movement 06/22/18 06/22/18 06/25/18 # Bowel Movements 1 Narrative: Left lower extremity: Clean dry dressings intact. Knee immobilizer in place. It is adjusted. Distally intact sensation with active dorsiflexion plantar flexion of foot. Moderate calf swelling - Urinary Catheter Management Straight Cath placed during this visit: yes Reason for continuing: Acute urinary retention Insertion date: 06/24/18 Insertion time: 04:35 Indwelling Urethral Catheter Cath placed during this visit: no Reason for continuing: Acute urinary retention Results - Labs CBC & Chem 7: 06/22/18 06:43 Microbiology 06/21/18 09:47 Wound - Other Gram Stain - Final 06/21/18 09:47 Wound - Other Wound Culture - Final No growth in 72 hours (aerobically and anaerobically ) Assessment and Plan - Problem List (1) Stress fracture, left tibia, subsequent encounter for fracture with nonunion Code(s): M84.362K - Stress fracture, left tibia, subsequent encounter for fracture with nonunion Status: Acute (2) Obesity Code(s): E66.9 - Obesity, unspecified Status: Chronic Qualifiers: Obesity type: unspecified obesity type Obesity classification: adult class 3 (BMI >= 40) - Assessment and Plan 1) removal of IMN with revision ORIF and ICBG of left proximal tibia nonunion - POD 4 -NWB -knee brace at all times -elevate and ice -pain control -DVT prophylaxis -PROM 0-90deg if tolerated -DC planning likely to SNF due to patients inability to ambulate on own - plan for discharge to SNF when medically cleared and bed available -will place urology consult today due to persistent urinary retention and bell placement -f/u with Neri or JIMMY in 2 weeks
[2018-06-25] MEDS: Pregabalin 75 MG Capsule PO SCH ×3 (08:51→17:44)
[2018-06-25] MEDS: Senna/Docusate Sodium 8.6/50 MG Tablet PO SCH ×2 (08:51→20:00)
[2018-06-25] MEDS: Lisinopril 20 MG Tablet PO SCH (08:51)
[2018-06-25] MEDS: FLUoxetine 10 MG Capsule PO SCH (08:51)
[2018-06-25] MEDS: Allopurinol 100 MG Tablet PO SCH (08:51)
[2018-06-25] MEDS: Metoprolol Tartrate 50 MG Tablet PO SCH ×2 (08:51→19:59)
[2018-06-25] MEDS: Divalproex 125 MG DR Tablet PO SCH ×3 (08:51→17:44)
[2018-06-25] MEDS: Calcium/Vitamin D 250/125 MG Tablet PO SCH ×3 (08:51→17:44)
--- NOTE | 2018-06-25 09:01 | MB ---
cc: RemigioGustavoiram Simeon DO DATE: 06/24/2018 HISTORY OF PRESENT ILLNESS: Ms. Ji is a 52-year-old female who underwent open reduction with internal fixation of her left knee on 06/21/2018. Postoperatively, she developed urinary retention and has required a Reveles catheter. She admits to being constipated at the present time. She is also on narcotics. Prior to this, she denies any history of urinary retention or recent urinary tract infections. She has had urinary tract infections in the past, however. She denies any history of stones. She denies any prior history of bladder surgery. PAST MEDICAL HISTORY: Includes anxiety and depression, chronic pain, Guillain-Roberts syndrome, hypertension, neuropathy. PAST SURGICAL HISTORY: Fusion of the cervical spine, abdominal hysterectomy, arthroscopy of the left knee and right knee. Denies history of substance abuse. SOCIAL HISTORY: She does drink 2-4 times a month. She denies smoking. FAMILY HISTORY: No history of malignancies. REVIEW OF SYSTEMS: Notes constipation. Denies abdominal pain, chest pain or shortness of breath. Denies headache. Unable to ambulate at present. Denies kidney stones, gross hematuria. No psychiatric problems other than anxiety and depression. The remaining review of systems were reviewed and were negative. PHYSICAL EXAMINATION: VITAL SIGNS: Temperature 98, heart rate 87, respiratory rate 16, 127/57. She is an obese 52-year-old female in no acute distress. HEENT: Normocephalic and atraumatic. Pupils equal, round, regular and reactive to light. Extraocular movements intact. NECK: Supple. HEART: Regular rate and rhythm. LUNGS: Clear. ABDOMEN: Soft, nontender, nondistended. GENITOURINARY: Normal female external genitalia with Reveles catheter in place. She has a stabilizing brace on her left leg. NEUROLOGIC: Cranial nerves 2-12 intact. LABORATORY DATA: Hemoglobin 8.5, hematocrit 25.7. ASSESSMENT: A 52-year-old female status post recent left lower extremity surgery due to fracture, urinary retention due to combination of immobilization, narcotics and constipation. PLAN: 1. Treat constipation as appropriate as necessary. 2. Wean narcotics as appropriate. 3. Once able to ambulate, bladder function should return, and can give a void trial at that time. Thank you for the consult and allowing me to participate in the care of this patient. DO Bee Houston , 02:24 PM , 02:31 PM
--- NOTE | 2018-06-25 11:37 | P.PN ---
Subjective Interval history: Patient seen and examined Complaining of left knee pain Afebrile, Physical Exam Vital signs: Vital Signs 06/24/18 12:00 06/24/18 15:13 06/24/18 20:00 Temperature 98.1 F 97.7 F 98 F Pulse Rate 75 77 94 H Respiratory Rate 14 16 19 Blood Pressure 146/65 H 122/57 L 115/59 L Pulse Oximetry 94 L 99 100 06/25/18 00:00 06/25/18 08:00 Temperature 98.7 F 98.2 F Pulse Rate 65 86 Respiratory Rate 16 18 Blood Pressure 101/49 L 128/58 L Pulse Oximetry 98 97 Intake & Output 06/24/18 06/25/18 06/25/18 18:59 06:59 18:59 Intake Total 1240 / 1240 Output Total 1700 / 1700 1949 Balance -1700 / -1700 -710 / -710 Intake: IV 1000 / 1000 LR 1000 mL Inj 1,000 ML @ 80 1000 / 1000 mls/hr IV.CONT .[id number] [facility] Rx# :[id number] Oral 240 / 240 Output: Urine Amount (Catheter) 0 / 0 1949 Indwelling Urethral Catheter 1699 / 0 1949 Other: Date of Last Bowel Movement 06/22/18 06/25/18 # Bowel Movements 1 Narrative: GENERAL: NAD SKIN: Warm and dry. HEAD: Normocephalic. EYES: No scleral icterus. No injection or drainage. NECK: Supple, trachea midline. No JVD or lymphadenopathy. CARDIOVASCULAR: Regular rate and rhythm without murmurs, gallops, or rubs. RESPIRATORY: Breath sounds equal bilaterally. No accessory muscle use. GASTROINTESTINAL: Abdomen soft, non-tender, nondistended. MUSCULOSKELETAL: No cyanosis, or edema. Brace over left knee BACK: Nontender without obvious deformity. No CVA tenderness. - Urinary Catheter Management Straight Cath placed during this visit: yes Reason for continuing: Acute urinary retention Insertion date: 06/24/18 Insertion time: 04:35 Indwelling Urethral Catheter Cath placed during this visit: no Reason for continuing: Acute urinary retention Results - Labs CBC & Chem 7: 06/22/18 06:43 Microbiology 06/21/18 09:47 Wound - Other Gram Stain - Final 06/21/18 09:47 Wound - Other Wound Culture - Final No growth in 72 hours (aerobically and anaerobically ) Assessment and Plan - Plan 52-year-old female with s/p removal of IMN with revision ORIF and ICBG of left proximal tibia nonunion June 21, 2018 Management per orthopedic surgery Continue with current pain management PT to treat and eval Lovenox for DVT prophylaxis Hypertension Continue with home medications with holding parameters Diet-controlled diabetes, stable Anxiety and depression Continue outpatient medications DVT prophylaxis: Lovenox Urinary retention Continue Reveles Appreciate input from urology, recommend voiding trial
[2018-06-25] MEDS: Enoxaparin Inj 40 MG/0.4 ML Syringe SQ SCH (11:47)
[2018-06-26 02:50] VITALS: RESP 17; TEMP 98.4; O2SAT 96
--- NOTE | 2018-06-26 06:23 | P.PNOP ---
Subjective Interval history: POd 5 s/p BRYAN with ORIF left tibia improving. pain better. out of bed with walker. states doing well Physical Exam Vital signs: Vital Signs 06/25/18 08:00 06/25/18 12:00 06/25/18 16:00 Temperature 98.2 F 98.1 F 98.5 F Pulse Rate 86 65 72 Respiratory Rate 18 18 18 Blood Pressure 128/58 L 140/70 101/58 L Pulse Oximetry 97 97 99 06/25/18 20:00 06/26/18 00:00 Temperature 98.0 F 98.4 F Pulse Rate 85 69 Respiratory Rate 18 17 Blood Pressure 142/69 H 132/64 Pulse Oximetry 97 96 Intake & Output 06/25/18 06/25/18 06/26/18 06:59 18:59 06:59 Intake Total 1240 / 1240 600 / 600 Output Total 1949 Balance -710 / -710 -1350 / -1350 Intake: IV 1000 / 1000 LR 1000 mL Inj 1,000 ML @ 80 1000 / 1000 mls/hr IV.CONT .[id number] [facility] Rx# :[id number] Oral 240 / 240 600 / 600 Output: Urine 1949 Urine Amount (Catheter) 1949 Indwelling Urethral Catheter 1949 Other: Date of Last Bowel Movement 06/25/18 06/25/18 # Bowel Movements 1 Narrative: LLE: +CKS. dressings clean and dry. intact. NVI. - Urinary Catheter Management Straight Cath placed during this visit: yes Reason for continuing: Acute urinary retention Insertion date: 06/24/18 Insertion time: 04:35 Indwelling Urethral Catheter Cath placed during this visit: no Reason for continuing: Acute urinary retention Results - Labs CBC & Chem 7: 06/22/18 06:43 Assessment and Plan - Problem List (1) Stress fracture, left tibia, subsequent encounter for fracture with nonunion Code(s): M84.362K - Stress fracture, left tibia, subsequent encounter for fracture with nonunion Status: Acute (2) Obesity Code(s): E66.9 - Obesity, unspecified Status: Chronic Qualifiers: Obesity type: unspecified obesity type Obesity classification: adult class 3 (BMI >= 40) - Assessment and Plan 1) removal of IMN with revision ORIF and ICBG of left proximal tibia nonunion - POD 5 -NWB -knee brace at all times -elevate and ice -pain control -DVT prophylaxis -PROM 0-90deg if tolerated -DC planning likely to SNF due to patients inability to ambulate on own - plan for discharge to SNF when medically cleared and bed available -will place urology consult today due to persistent urinary retention and bell placement -f/u with Neri or JIMMY in 2 weeks
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
[2018-06-26] MEDS: oxyCODONE/Acetaminophen 10/325 Tablet PO PRN ×3 (06:36→10:27)
[2018-06-26] MEDS: Allopurinol 100 MG Tablet PO SCH (08:19)
[2018-06-26] MEDS: Lisinopril 20 MG Tablet PO SCH (08:19)
[2018-06-26] MEDS: Pregabalin 75 MG Capsule PO SCH (08:19)
[2018-06-26] MEDS: FLUoxetine 10 MG Capsule PO SCH (08:19)
[2018-06-26] MEDS: Metoprolol Tartrate 50 MG Tablet PO SCH (08:19)
[2018-06-26] MEDS: Calcium/Vitamin D 250/125 MG Tablet PO SCH (08:20)
[2018-06-26] MEDS: Divalproex 125 MG DR Tablet PO SCH (08:20)
[2018-06-26] MEDS: Senna/Docusate Sodium 8.6/50 MG Tablet PO SCH (08:20)
[2018-06-26 09:32] VITALS: BP 113/71; PULSE 71
[2018-06-26] MEDS: KCL 20 mEq/D5W/NaCl 0.45% Inj 1,000 ML IV.SIG SCH (10:04)
[2018-06-26] MEDS: Enoxaparin Inj 40 MG/0.4 ML Syringe SQ SCH (10:27)
== END 2018-06-26 11:31 ==
LOC: HSDI 05:32 → N06 14:32
PROVIDERS: ADMIT Orthopaedic Surgery Orthopaedic Trauma; ATTEND Orthopaedic Surgery Orthopaedic Trauma
PROC: ORIFTIB (2018-06-21 08:15)